=== PATIENT | male | born 1975 | race Caucasian/White ===

== ENCOUNTER 2016-11-09 18:13 | Emergency (ER) | payer OTHER ==
[2016-11-09 18:19] VITALS: BP 128/68
--- NOTE | 2016-11-09 18:42 | ED PSYCHIATRIC COMPLAINT ---
History of Present Illness General Chief Complaint: Psychiatric Related Complaint Stated Complaint: PSYCH EVAL Source: patient, old records, EMS Exam Limitations: no limitations Vital Signs & Intake/Output Vital Signs & Intake/Output Vital Signs Date Time Temp Pulse Resp B/P Pulse O2 O2 Flow FiO2 Ox Delivery Rate 11/099 98.2 92 18 128/68 97 Room Air Allergies Coded Allergies: lactose (UNKNOWN 11/09/16) sesame oil (UNKNOWN 11/09/16) sesame seed (UNKNOWN 11/09/16) Uncoded Allergies: PESTICIDES (UNKNOWN 04/14/12) Triage Nurses Notes Reviewed? yes Onset: Abrupt Duration: day(s): (1), constant Timing: recent history Severity: mild Severity Numbers: 1 Associated Symptoms: DENIES HPI: 40-year-old male presents to the emergency room brought in by ambulance after a family member called 911 stating that he was acting erratically. On arrival the patient states that he took 1 tramadol today and went to go speak with his uncle. The patient states that he does not know why he was here. The patient has been sober for the past 1 month after being admitted to [place] [facility] for alcohol dependence. The patient takes trazodone and Klonopin daily in addition to his tramadol for chronic knee pain and he denies any alcohol or drug use today. The patient denies suicidal or homicidal ideation and states that he does not want to be here (CARRINGTON DAS) Past History Travel History Traveled to [place] past 21 day No Medical History Any Pertinent Medical History? none Surgical History Surgical History: none Psychosocial History What is your primary language Singaporean ETOH Use: PREVIOUS ALCOHOLIC Family History Hx Contributory? No (CARRINGTON DAS) Review of Systems Review of Systems Constitutional: Reports: see HPI. All Other Systems: Reviewed and Negative Comments Review of systems: See HPI, All other systems negative. Constitutional, no chills no fever, no malaise HEENT: No visual changes no sore throat no congestion, Cardiovascular: No chest pain , no palpitation Skin, no rashes, no change in skin Respiratory: No dyspnea no cough no sputum GI: No nausea no vomiting, no diarrhea, : No dysuria Muscle skeletal: No joint pain, no back pain, no neck pain, Neurologic: No numbness no headache Psych: No stress no anxiety no depression,. Heme/endocrine: No bruising no bleeding Immunology: No lymphadenopathy (CARRINGTON DAS) Physical Exam Physical Exam General Appearance: well developed/nourished, no apparent distress, alert, awake , comfortable Neurological/Psychiatric: no motor/sensory deficits, awake, alert, normal mood/ affect, calm, story analyst II-XII nml as tested Comments: Well-developed well-nourished person in no acute distress HEENT: Normal EENT exam; PERRL, EOMI, no nystagmus. HEAD is atraumatic. moist mucous membranes. Neck: Supple, normal range of motion w Back: Nontender, no CVA tenderness. Full range of motion Cardiovascular: Regular rate and rhythms no murmurs rubs Respiratory:. No respiratory distress. Patient speaking in full complete sentences. Breath sounds clear to auscultation bilaterally: NO W/R/R Abdomen: Soft, nontender nondistended, no appreciable organomegaly. Normal bowel sounds. No rebound/guarding, Extremity: No edema, full range of motion of extremities Neuro: Alert oriented x3, motor sensory normal, cranial nerves II through XII grossly intact. There were no obvious focal neurologic abnormalities. Skin: No appreciable rash on exposed skin, skin is warm and dry. Psych: Mood and affect is normal, memory and judgment is normal. SAD PERSONS Done? patient not suicidal (CARRINGTON DAS) Progress Differential Diagnosis: drug overdose, drug withdrawal, DEPRESSION, ANXIETY, BIPOLAR Plan of Care: Patient is alert and oriented 3, coherent cooperative calm. He does not appear to be a harm to himself. Patient does not arrive on police paper. The patient is declining wishing to speak with crisis. He states that he is unsure why his family called 911 however he went to speak with his uncle today and got agitated. Case was discussed with Dr. JARRETT- as the patient is not on police paper denies SI or HI alert and oriented 3 discussed with him that we cannot keep him against his will. Patient is calm and cooperative at this time he will follow-up tomorrow, he will return anytime sooner if he changes his mind wishes to speak with crisis or has any thoughts of wanting to harm self or others (CARRINGTON DAS) Departure Departure Time of Disposition: 1854 Disposition: HOME OR SELF CARE Condition: Stable Clinical Impression Primary Impression: Normal exam Referrals: ALONDRA CUBA MD (PCP/Family) Additional Instructions: FOLLOW UP WITH YOUR PRIMARY CARE PHYSICIAN ON THURSDAY. Return immediately if you change your mind and wish to speak with someone oriented any other concerns Departure Forms: Customer Survey General Discharge Information (ARCHANA JARAMILLO,CARRINGTON) PA/NONFARM ANIMAL CARETAKER Co-Sign Statement Statement: ED Attending supervision documentation- X I saw and evaluated the patient. I have also reviewed all the pertinent lab results and diagnostic results. I agree with the findings and the plan of care as documented in the PA's/NONFARM ANIMAL CARETAKER's documentation. [] I have reviewed the ED Record and agree with the PA's/NONFARM ANIMAL CARETAKER's documentation. [] Additions or exceptions (if any) to the PAs/NONFARM ANIMAL CARETAKER's note and plan are summarized below: [] (KOLBY SULLIVAN,VENANCIO)
== END 2016-11-09 19:49 ==
LOC: ERH 18:13
DX: Z04.8 Encounter for examination and observation for other specified reasons (principal)

== ENCOUNTER 2016-11-12 16:41 | Inpatient (IN) | payer OTHER ==
[~2016-11-12] VITALS: Ht 177.8 cm; Wt 94.8 kg
--- NOTE | 2016-11-12 16:53 | ED PSYCHIATRIC COMPLAINT ---
See Addendum History of Present Illness General Chief Complaint: ETOH/Drug Related Complaint Stated Complaint: BIBA DRUG ABUSE? Source: patient Exam Limitations: not alert/orientated, clinical condition, poor historian Vital Signs & Intake/Output Vital Signs & Intake/Output Vital Signs Date Time Temp Pulse Resp B/P Pulse O2 O2 Flow FiO2 Ox Delivery Rate 11/12 2101 101 16 117/59 96 Room Air 11/12 1745 142/98 11/12 1743 98.9 100 20 147/101 94 Nasal 2.0L Cannula 11/12 1647 97.6 92 Nasal 2.0L Cannula 11/12 1645 88 Room Air 11/12 1643 115 18 141/96 88 Room Air ED Intake and Output 11/13 0000 11/12 1200 Intake Total Output Total 800 Balance -800 Output, Urine 800 Allergies Coded Allergies: lactose (UNKNOWN 11/09/16) sesame oil (UNKNOWN 11/09/16) sesame seed (UNKNOWN 11/09/16) Uncoded Allergies: PESTICIDES (UNKNOWN 04/14/12) Triage Nurses Notes Reviewed? yes Onset: Abrupt Duration: unknown duration Timing: unknown HPI: 11/12/16 5:36 PM 40-year-old man presents to the emergency department for alcohol intoxication. He denies any complaints. Physical exam, he is awake and alert. He is intoxicated. He does have abrasions to bilateral hands. Physical exam is otherwise unremarkable. According to the patient's ex- Ana María [phone] The patient has been depressed, drinking alcohol on a daily basis, he was recently hospitalized at [facility]. She is concerned that he is a danger to himself. Onset of the symptoms were abrupt, the duration is unknown, the severity is significant as his symptoms required him to come to the emergency department for care. (DENISHA HOLLAND DO) Past History Travel History Traveled to [place] past 21 day No Medical History Any Pertinent Medical History? see below for history Neurological: DENIES EENT: DENIES Cardiovascular: DENIES Respiratory: DENIES Gastrointestinal: DENIES Hepatic: DENIES Renal: DENIES Musculoskeletal: DENIES Psychiatric: DENIES Endocrine: DENIES Blood Disorders: DENIES Cancer(s): DENIES PAN GREASER/Reproductive: DENIES Surgical History Surgical History: none Psychosocial History What is your primary language Maltese Family History Hx Contributory? No (DENISHA HOLLAND DO) Review of Systems Review of Systems Constitutional: Denies: fever. EENTM: Reports: no symptoms. Respiratory: Reports: no symptoms. Cardiovascular: Reports: no symptoms. GI: Reports: no symptoms. Genitourinary: Reports: no symptoms. Musculoskeletal: Reports: no symptoms. Skin: Reports: see HPI. Neurological/Psychological: Reports: no symptoms. Hematologic/Endocrine: Reports: no symptoms. Immunologic/Allergic: Reports: no symptoms. (DENISHA HOLLAND DO) Physical Exam Physical Exam General Appearance: alert, awake, mild distress Head: atraumatic, normal appearance Eyes: Bilateral: normal appearance, PERRL, EOMI. Ears, Nose, Throat: normal pharynx, normal ENT inspection Neck: normal inspection, supple, full range of motion Respiratory: normal breath sounds, chest non-tender, no respiratory distress Cardiovascular: regular rate/rhythm Gastrointestinal: soft, non-tender Extremities: abrsion to the hands, no bony tenderness or swelling Neurological/Psychiatric: awake, alert, anxious Appearance/Memory/Insight: disheveled Behavoir/Eye Contact/Speech: uncooperative Thoughts/Hallucinations: no apparent hallucination Skin: abrasions to the hands SAD PERSONS SAD PERSONS Response Value Male Sex? yes 1 Depression/Hopelessness? yes 2 Previous Attempts/Psych Care yes 1 Excessive Ethanol/Drug Use? yes 1 Social Support? has no support 1 Total 6 SAD PERSONS Done? yes (DENISHA HOLLAND DO) Progress Differential Diagnosis: drug intoxication, drug overdose, drug withdrawal Plan of Care: Orders Procedure Date/time Status Continuous Observation Monitor 11/12 2236 Active ED CRISIS PSYCH CONSULT 11/12 2236 Active Lab Add-on Test 11/12 2232 Active TROPONIN LEVEL 11/12 1747 Complete URINE DRUG SCREEN FOR ER ONLY 11/12 174 Complete Continuous Observation Monitor 11/12 174 Active ACETOMINOPHEN 11/12 174 Complete SALICYLATE 11/12 174 Complete ETHANOL 11/12 174 Complete COMPREHENSIVE METABOLIC PANEL 11/12 174 Complete CBC WITHOUT DIFFERENTIAL 11/12 1744 Complete EKG 11/12 1744 Active Laboratory Tests 11/12/16 1824: Urine Opiates Screen < 100.00, Methadone Screen < 40, Barbiturate Screen < 60, Ur Phencyclidine Scrn < 6.00, Amphetamines Screen < 100, U Benzodiazepines Scrn 374 H, Urine Cocaine Screen < 50, Urine Cannabis Screen < 5.00 11/12/16 1748: Anion Gap 17 H, Estimated GFR > 60, BUN/Creatinine Ratio 8.8, Glucose 118 H, Calcium 8.4, Total Bilirubin 0.6, AST 54, ALT 55, Alkaline Phosphatase 86, Troponin I < 0.01, Total Protein 7.6, Albumin 4.1, Globulin 3.5, Albumin/ Globulin Ratio 1.2, CBC w Diff NO MAN DIFF REQ, RBC 4.82, MCV 93.0, MCH 31.4 H, RDW 14.5, MPV 7.5, Gran % 40.4 L, Lymphocytes % 53.1 H, Monocytes % 4.2, Eosinophils % 1.9, Basophils % 0.4, Absolute Granulocytes 4.2, Absolute Lymphocytes 5.6 H, Absolute Monocytes 0.4, Absolute Eosinophils 0.2, Absolute Basophils 0, PUBS MCHC 33.8, Salicylates < 1.0, Acetaminophen < 10.0 L, Serum Alcohol 460.0 Initial ED EKG: sinus tachycardia, no significant change from old (DENISHA HOLLAND DO) Hand-Off Endorsed To: DENISHA HOLLAND DO Endorsed Time: 0700 Pending: consult (BELLE SULLIVAN,DAVID Asif) Departure Departure Disposition: STILL A PATIENT Condition: Stable Clinical Impression Primary Impression: Alcohol intoxication Referrals: ALONDRA CUBA MD (PCP/Family) Departure Forms: Customer Survey General Discharge Information Comments 11/12/16 Patient was signed out to Dr. Gutierrez at 9 PM. (DENISHA HOLLAND DO) Critical Care Note Critical Care Note Critical Care Time: 30-74 min (DENISHA HOLLAND DO)
--- NOTE | 2016-11-12 16:55 | NUR ---
RADHA FROM FRIENDS HOUSE ON PEER +ETOH AND ?XANAX INGESTION. PER EMS AND POLICE, PT'S STATED TO POLICE THAT PT STOLE HIS MOTHER'S XANAX PILLS. PT WAS AT FRIENDS HOUSE DRINKING BUT FRIEND DID NOT WITNESS ANY PILL INGESTION. UPON ARRIVAL PT DROWSY, ANSWERING ONLY A COUPLE QUESTIONS. SLOW SLURRED SPEECH. FALLS ASLEEP EASILY. 88% ON RA WITH SHALLOW RESPIRATIONS. PLACED ON 2LNC.
--- NOTE | 2016-11-12 17:43 | NUR ---
PT AWAKE BUT NOTED TO HAVE GARBLED SPEECH, REQUESTING TO CALL HIS MOTHER AT THIS TIME, BP 147/101 AUTO, BP MANUAL 142/98. SITTER AT BEDSIDE.
[2016-11-12 18:00] LABS: ABSOLUTE BASOPHIL COUNT 0 /CUMM (0.0-0.2); ABSOLUTE EOSINOPHIL COUNT 0.2 /CUMM (0.0-0.7); ABSOLUTE GRANULOCYTE CT 4.2 /CUMM (1.4-6.5); ABSOLUTE LYMPH COUNT 5.6 /CUMM (1.2-3.4); ABSOLUTE MONOCYTE COUNT 0.4 /CUMM (0.10-0.60); BASOPHIL % 0.4 % (0.0-2.0); EOSINOPHIL % 1.9 % (0-5); GRANULOCYTE % 40.4 % (42.2-75.2); HEMATOCRIT 44.8 % (42-52); MEAN CORPUSCULAR HGB 31.4 PG (27.0-31.0); MEAN CORPUSCULAR HGB CONC 33.8 G/DL (33.0-37.0); MEAN PLATELET VOLUME 7.5 FL (7.4-10.4); PLATELET COUNT 282 /CUMM (130-400); RBC DISTRIBUTION WIDTH 14.5 % (11.5-14.5); RED BLOOD CELL CT 4.82 /CUMM (4.70-6.10); WHITE BLOOD CELL COUNT 10.5 /CUMM (4.8-10.8)
--- NOTE | 2016-11-12 18:11 | NUR ---
PT INTERMITTENTLY SPEAKING OUT BUT TO NO SPECIFIC PERSON. SITTER AT DOORWAY FOR CONTINUOUS MONITORING
--- NOTE | 2016-11-12 18:26 | NUR ---
URINE OBTAINED AND SENT TO LAB. PT ABLE TO STAND WITH ASSIST X2 BUT VERY UNSTEADY AT THIS TIME
--- NOTE | 2016-11-12 21:01 | NUR ---
PT SLEEPING. 02 96%. VSS
--- NOTE | 2016-11-12 23:41 | NUR ---
ASSUMED CARE OF PT PER VITALIY WILSON. PT SLEEPING IN RM WITH RR, CHEST RISE AND FALL NOTED. SITTER IN PLACE IN , PT MOVED TO RM 13.
--- NOTE | 2016-11-13 02:03 | NUR ---
PT SLEEPING WITH RR, CHEST FALL AND RISE NOTED. SITTER IN BH
--- NOTE | 2016-11-13 03:35 | NUR ---
PT AWOKE ASKING TO BE SEEN BY A DOCTOR SINCE HE STATED " I WAS NEVER SEEN TONIGHT", THIS RN INFORMED PT THAT HE WOULD BE SEEN BY CRISIS IN THE MORNING.
--- NOTE | 2016-11-13 04:24 | NUR ---
PT SLEEPING WITH RR, SITTER IN PLACE. PT ASKED THIS RN FOR A CUP OF WATER. WILL CONTINUE TO MONITOR
--- NOTE | 2016-11-13 05:27 | NUR ---
PT SLEEPING WITH RR, SITTER IN PLACE, WILL CONTINUE TO MONITOR
--- NOTE | 2016-11-13 06:30 | NUR ---
PTS CALLED (HARLEEN [phone]) PTS STATES " I DONT WANT MY KNOWING I CALLED, I WOULD LIKE THE CRISIS TEAM TO CALL ME AND LET ME KNOW THE PLAN ONCE THEY ARE ALL SET, BECAUSE IF HE GETS D/C'D HOME ITS GOING TO BE BAD"
--- NOTE | 2016-11-13 07:23 | NUR ---
ASSUMED CARE OF PT WHO IS AWAKE, ALERT. PT REQUESTING HIS WEDDING BAND, GLASSES AND PHONE. ONLY WEDDING BAND IN VALUABLES SAFE. INFORMED PT THAT HE WAS VERY INTOXICATED WHEN HE ARRIVED YESTERDAY AND THAT HE DIDN'T ARRIVE WITH PHONE OR GLASSES. WEDDING BAND RETURNED TO PT AND PT SIGNED FOR IT. PT INFORMED THAT HE WILL GET HIS CLOTHES BACK WHEN HE IS DISCHARGED. WAITING FOR CRISIS EVALUATION. PT ATE ALL OF HIS BREAKFAST TRAY. SITTER REMAINS AT DOORWAY. WILL CTM
--- NOTE | 2016-11-13 11:04 | NUR ---
PT BAL =.003 ADVISED HIM CRISIS WILL MEET WITH HIM SOON
--- NOTE | 2016-11-13 11:19 | ED PSY CRISIS COLLATERAL NOTE ---
See Addendum Collateral Note Collateral Note Family/Inform/Adam Contacts: portable trackman spoke with Pt's Ana María Bennett and Pt's Mother Mariana Solorio . They expresses great concern about pt and would like him to be admitted for inpt psych tx. They report that they have been for over 15 years and he is not the person she . "He is out of touch with reality." They explain that he thinks he is a transit police officer and will dress up as one. He got in trouble the other day by a real transit police officer for impersonating a transit police officer. Pt also tells people he is a Hells Arvind and dresses in Hells angels clothes. He tells others that he has multiple Motor Cycles at home. states that he has never been on a motor cycle in his life and does not own any. Pt was committed to [facility] inpt this past August 2016 for 2 weeks. thinks he was diagnosed with either Bipolar or Schizophrenia. 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 Following his inpt psych tx at [facility], he went directly into a 28 day rehab and got out Oct 24 2016. He claims that he has maintained his sobriety, but he has been drinking again. explains that she started filing for divorce and pt has been staying with his mother, however given his relapse and psychotic behavior, Mom could not longer have him in her home either and pt is now homeless. Mom explains that she is very afraid of him as he has severe mood swings and he becomes very entitled and grandiose as well as irrational and illogical. He showed up at his 's place yesterday and was intoxicated and agitated and talking to people who were not there, so she called the police and they brought him to the ED on a PEER. They report that pt does not know reality and 95 percent of what he says is not real. They report that pt is also very manipulative. Pt will be very sweet and then instantly become angry and threatening stating he will get his people after them. reports that he has even threatened to kill her. Both and Mom are afraid of him. 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 says this makes no sense. Pt is currently in tx at [facility] for the past 2 years and has a therapist named Cirilo and sees Dr. Angela for meds. says she does not understand why they prescribe him benzos since pt has been in alcohol treatment. This clinician left a Jenifer a message at [facility] a message for a call back for tx collaboration. Mom and would like to be notified of pt's final dispo.
--- NOTE | 2016-11-13 12:52 | NUR ---
PT HYPERTENSIVE. PRIOR TO BP READING PT STATES HIS BP WILL BE HIGH BECAUSE HE HASN'T TAKEN HIS MEDICATIONS. PT AMBULATORY AROUND AREA. CALM, COOPERATIVE. [id number]
--- NOTE | 2016-11-13 13:35 | NUR ---
1 VALUABLES BAG NOW PLACED IN ED SAFE
--- NOTE | 2016-11-13 13:59 | ED PSYCH CRISIS CONSULTATION ---
See Addendum Crisis Consult Basic Assessment Date of Consult: 11/13/16 Responsible Person/Accompanied By: self Insurance Authorization: Insurance #1: Insurance name: [employer]. Phone number: Policy number: [id number] Group number: [id number] Authorization number: ED Provider: Patient's ED Provider: DENISHA HOLLAND DO Primary Care Physician: Patient's PCP: ALONDRA CUBA MD PCP's Current Psychiatrist: Dr. Angela [facility] Chief Complaint: ETOH/Drug Related Complaint Patient's Quote: "I drank because I felt depressed." Present Illness: Pt is a 40 yo male who was brought to the ED on a PEER that states "Heavily intoxicated by an undetermined substance suspected to be xanax. Alphonso' s and friend both called the [place] police to report he is heavily intoxicated. His friend reported that he is delusional and talking to people who aren't there." Pt's utox is positive for benzos and his BAL 460 at 17:48. clinician oncology spoke with Pt's Ana María Bennett and Pt's Mother Mariana Solorio . They expresses great concern about pt and would like him to be admitted for inpt psych tx. They report that they have been for over 15 years and he is not the person she . "He is out of touch with reality." They explain that he thinks he is a juvenile detention officer and will dress up as one. He got in trouble the other day by a real juvenile detention officer for impersonating a juvenile detention officer. Pt also tells people he is a Hells Arvind and dresses in Hells angels clothes. He tells others that he has multiple Motor Cycles at home. states that he has never been on a motor cycle in his life and does not own any. Pt was committed to [facility] inpt this past August 2016 for 2 weeks. thinks he was diagnosed with either Bipolar or Schizophrenia. 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 Following his inpt psych tx at [facility], he went directly into a 28 day rehab and got out Oct 24 2016. He claims that he has maintained his sobriety, but he has been drinking again. explains that she started filing for divorce and pt has been staying with his mother, however given his relapse and psychotic behavior, Mom could not longer have him in her home either and pt is now homeless. Mom explains that she is very afraid of him as he has severe mood swings and he becomes very entitled and grandiose as well as irrational and illogical. He showed up at his 's place yesterday and was intoxicated and agitated and talking to people who were not there, so she called the police and they brought him to the ED on a PEER. They report that pt does not know reality and 95 percent of what he says is not real. They report that pt is also very manipulative. Pt will be very sweet and then instantly become angry and threatening stating he will get his people after them. reports that he has even threatened to kill her. Both and Mom are afraid of him. 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 says this makes no sense. Pt is currently in tx at [facility] for the past 2 years and has a therapist named Cirilo and sees Dr. Angela for meds. says she does not understand why they prescribe him benzos since pt has been in alcohol treatment. This clinician left clarisa Burgess a message at [facility] a message for a call back for tx collaboration. Mom and would like to be notified of pt's final dispo. Jenifer of [facility] called back and confirmed that pt is actively in tx at [facility] for the past 2 years. He is treated for OCD, General Anxiety and Alcoholism. His meds are Klonopin 2mg 3x daily and trazodone 150mg at bed time prn. He was committed to [facility] September 08 2016 for Psychosis and Alcohol Use and on Sep 22 he transferred to [facility] and then to [facility] for continued alcohol tx. He recently was discharged from [facility] on Oct 24. Upon crisis eval pt stands to shank hands and presents as engaging. As he begins to explain why he is here he becomes tearful. "My friend went to retirement last night and I got depressed and relapsed." Pt is not able to recall how much he drank. He reports that he has been sober since he got out of rehab earlier this month. Until last night when he found out about his friend. Pt expresses feeling disappointed in himself for relapsing. "I have 2 children ages 11 and 16. I need to be sober. I don't want them to go through what I went through with my father. " Pt also identifies that he has been feeling depressed due to his conflicted relationships with his mother and . Pt denies any SI/HI/SH or sx of psychosis. When this clinician identified his previous inpt admit due to delusions, he responded that hey did not know why he was diagnosed with that because he was there for his alcohol use only. Pt also reports that he has never had any SI or HI. Although pt denies most of the concerns that were expressed by his family, he admits that he is very depressed and that he would like inpt psych tx and also need help with his sobriety. Case reviewed with Dr. Arias of Psychiatry and he agrees for plan of inpt psych. There are currently no beds available on [facility] so a bed search will be done. Patient's Address: [address] [place] [address] Other Phone Number: Who Do You Live With? Friend Family/Informants Interviewed: Mother and and out pt provider ([facility]) Allergies - Coded Allergies: lactose (UNKNOWN 11/09/16) sesame oil (UNKNOWN 11/09/16) sesame seed (UNKNOWN 11/09/16) Uncoded Allergies: PESTICIDES (UNKNOWN 04/14/12) Laboratory Results: Laboratory Tests 11/12/16 1824: Urine Opiates Screen < 100.00, Methadone Screen < 40, Barbiturate Screen < 60, Ur Phencyclidine Scrn < 6.00, Amphetamines Screen < 100, U Benzodiazepines Scrn 374 H, Urine Cocaine Screen < 50, Urine Cannabis Screen < 5.00 11/12/16 1748: Anion Gap 17 H, Estimated GFR > 60, BUN/Creatinine Ratio 8.8, Glucose 118 H, Calcium 8.4, Total Bilirubin 0.6, AST 54, ALT 55, Alkaline Phosphatase 86, Troponin I < 0.01, Total Protein 7.6, Albumin 4.1, Globulin 3.5, Albumin/ Globulin Ratio 1.2, CBC w Diff NO MAN DIFF REQ, RBC 4.82, MCV 93.0, MCH 31.4 H, RDW 14.5, MPV 7.5, Gran % 40.4 L, Lymphocytes % 53.1 H, Monocytes % 4.2, Eosinophils % 1.9, Basophils % 0.4, Absolute Granulocytes 4.2, Absolute Lymphocytes 5.6 H, Absolute Monocytes 0.4, Absolute Eosinophils 0.2, Absolute Basophils 0, PUBS MCHC 33.8, Salicylates < 1.0, Acetaminophen < 10.0 L, Serum Alcohol 460.0 Past History Past Medical History Neurological: DENIES EENT: DENIES Cardiovascular: DENIES Respiratory: DENIES Gastrointestinal: DENIES Hepatic: DENIES Renal: DENIES Musculoskeletal: DENIES Psychiatric: DENIES Endocrine: DENIES Blood Disorders: DENIES Cancer(s): DENIES RECEIVER DISPATCHER/Reproductive: DENIES Past Surgical History Surgical History: 1 Psychosocial History Strengths/Capabilities: concerned family, engaged in out pt tx Physical Limitations (Interventions): none reported Psychiatric Treatment History Psych Treatment Psychiatric Treatment Yes Inpatient Treatment Yes Outpatient Treatment Yes Location of Treatment [facility] Reason for Treatment OCD, General Anxiety, Alcohol Use, Depression, and Psychosis Dates of Treatment 2014 to present Response to Treatment variable Diagnosis by History: OCD, General Anxiety, Alcohol Use, Depression, and Psychosis Substance Use/Abuse History Drug Use/Abuse Substances Used/Abused Yes Substance Used/Abused Alcohol First Use relapsed yesterday Last Used yesterday How much used/taken pt does not remember How often relapsed yesterday For how long since yesterday Route of use po Substance Abuse Treatment Substance Abuse Treatment Past Substance Abuse TX Yes Inpatient Treatment Yes Outpatient Treatment Yes Location of Treatment [facility] Reason for Treatment Alcohol use D/O Dates of Treatment August 2016 to Oct 2016 Response to Treatment variable Current Mental Status Mental Status Orientation: Person, Place, Situation Affect: Depressed, Hopeless, Sad Speech: WNL Neuro-vegetative: Anhedonia, Appetite Decreased, Concentration Poor, Helpless, Loss of Interest, Sleep Disturbance Appearance Appearance- Dress/Hygiene: unkempt, tearful Behaviors Thought Process: WNL Thought Content: WNL Memory: Short term memory Insight: Poor SI/HI Risk Assessment Past Suicidal Ideation/Attempts No Current Suicidal Ideation/Att No Past Homicidal Ideation/Att: Yes Current Homicidal Ideation/Attempts No Degree of Intent: None Gravely Disabled: Lack of Insight Risk Factors: high anxiety/distress, SA/MH hospitalized, substance abuse, lives alone, male, limited support Lethality Ratin PTSD Checklist PTSD Done? patient declined (denies trauma hx) ED Management Sitter: Yes Restraints: No DSM5/PS Stressors/Medical Prob Diagnosis' (DSM 5, Stressors, Medical): F33.3 Depression with Psychotic features, F10.20 Alcohol Use D/O severe Current GAF: 25 Departure Disposition Psych Medical Clearance Date: 11/13/16 Medically Cleared at: 1000 Time Started: 1000 Time Ended: 1100 Psychiatrist Consulted: Jaime Arias MD Date Disposition Established: 11/13/16 Time Disposition Established: 1100 Plan for Disposition - Modality: Inpatient Psychiatry Facility: Bed search Rationale for Disposition: safety and stabilization Type of IP Admission: Voluntary Referrals ALONDRA CUBA MD (PCP/Family)
--- NOTE | 2016-11-13 15:27 | NUR ---
PT WATCHING TV IN ROOM, CALM AND COOPERATIVE, VITALS COMPLETED.
--- NOTE | 2016-11-13 16:34 | NUR ---
Bed search being done. Clinical faxed to [facility], [facility] [place], [facility] and [facility]
--- NOTE | 2016-11-13 17:24 | NUR ---
PT'S DROPPED OFF BELONGINGS BAG FOR PT TO TAKE WHEN HOSPITALIZED. SECURITY TO SEARCH/DOCUMENT.
--- NOTE | 2016-11-13 17:36 | NUR ---
PT REFUSED IV, STATED "I HATE NEEDLES" AND "I DON'T NEED ONE. I AM NOT DEHYDRATED."
[2016-11-13 17:47] VITALS: BP 155/101
--- NOTE | 2016-11-13 18:45 | NUR ---
PT CALM AND COOPERATIVE, WATCHING TV. PT SCORING LOW ON CIWA. PT REPORTS HE FEELS WELL.
[2016-11-13 19:50] VITALS: BP 148/80
--- NOTE | 2016-11-13 20:36 | NUR ---
PT IN ROOM 13, CALM AND COOPERATIVE. PT AWAITING DISPO PLANS FROM BED SEARCH.
[2016-11-13 22:25] VITALS: BP 150/90
--- NOTE | 2016-11-13 22:53 | NUR ---
Crisis will continue Pt bedsearch in the morning.
--- NOTE | 2016-11-13 23:24 | NUR ---
PT MEDICATED WITH QHS MEDS - TRAZODONE 350MG AND KLONOPIN 2MG. PT CALM AND COOPERATIVE.
[2016-11-14] VITALS (7 sets, daily range): BP systolic 115–149; BP diastolic 62–98
--- NOTE | 2016-11-14 00:25 | NUR ---
AWAKENED FOR VS. PLEASEANT OFFERS NO COMPLAINTS. NO TREMORS OR AGGITATION PRESENT. SITTER AT DOOR.
--- NOTE | 2016-11-14 06:37 | NUR ---
SST TUBE SENT TO LAB.
--- NOTE | 2016-11-14 06:37 | NUR ---
AWAKENED. PLEASANT. DENIES ANY COMPLAINTS. VS TAKEN. SST DRAWN AND SENT. SITTER AT DOOR.
--- NOTE | 2016-11-14 09:47 | IP CRISIS DIAG ASSESS PSYCH ---
Diagnostic Assessment Basic Assessment Insurance Authorization: Insurance #1: Insurance name: [employer] [place]. Phone number: [phone] Policy number: [id number] Group number: [id number] Authorization number: [id number] Aaron approved 3 nights 11/14-11/16/16 with review on 11/17/16. Review is with Roberto Justino D: [id number] Auth: [id number] Primary Care Physician: Patient's PCP: ALONDRA CUBA MD PCP's Patient's Quote: "I drank because I felt depressed." Present Illness: Pt is a 40 yo male who was brought to the ED on a PEER that states "Heavily intoxicated by an undetermined substance suspected to be xanax. Alphonso' s and friend both called the [place] police to report he is heavily intoxicated. His friend reported that he is delusional and talking to people who aren't there." Pt's utox is positive for benzos and his BAL 460 at 17:48. electorate officer spoke with Pt's Ana María Bennett and Pt's Mother Mariana Solorio . They expresses great concern about pt and would like him to be admitted for inpt psych tx. They report that they have been for over 15 years and he is not the person she . "He is out of touch with reality." They explain that he thinks he is a precinct i police sergeant and will dress up as one. He got in trouble the other day by a real precinct [place] police sergeant for impersonating a prec[place] police sergeant. Pt also tells people he is a Hells Arvind and dresses in Hells angels clothes. He tells others that he has multiple Motor Cycles at home. states that he has never been on a motor cycle in his life and does not own any. Pt was committed to [facility] inpt this past August 2016 for 2 weeks. thinks he was diagnosed with either Bipolar or Schizophrenia. 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 Following his inpt psych tx at [facility], he went directly into a 28 day rehab and got out Oct 24 2016. He claims that he has maintained his sobriety, but he has been drinking again. explains that she started filing for divorce and pt has been staying with his mother, however given his relapse and psychotic behavior, Mom could not longer have him in her home either and pt is now homeless. Mom explains that she is very afraid of him as he has severe mood swings and he becomes very entitled and grandiose as well as irrational and illogical. He showed up at his 's place yesterday and was intoxicated and agitated and talking to people who were not there, so she called the police and they brought him to the ED on a PEER. They report that pt does not know reality and 95 percent of what he says is not real. They report that pt is also very manipulative. Pt will be very sweet and then instantly become angry and threatening stating he will get his people after them. reports that he has even threatened to kill her. Both and Mom are afraid of him. 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 says this makes no sense. Pt is currently in tx at [facility] for the past 2 years and has a therapist named Cirilo and sees Dr. Angela for meds. says she does not understand why they prescribe him benzos since pt has been in alcohol treatment. This clinician left clarisa Burgess a message at [facility] a message for a call back for tx collaboration. Mom and would like to be notified of pt's final dispo. Jenifer of [facility] called back and confirmed that pt is actively in tx at [facility] for the past 2 years. He is treated for OCD, General Anxiety and Alcoholism. His meds are Klonopin 2mg 3x daily and trazodone 150mg at bed time prn. He was committed to [facility] September 08 2016 for Psychosis and Alcohol Use and on Sep 22 he transferred to [facility] and then to [facility] for continued alcohol tx. He recently was discharged from [facility] on Oct 24. Upon crisis eval pt stands to shank hands and presents as engaging. As he begins to explain why he is here he becomes tearful. "My friend went to group home last night and I got depressed and relapsed." Pt is not able to recall how much he drank. He reports that he has been sober since he got out of rehab earlier this month. Until last night when he found out about his friend. Pt expresses feeling disappointed in himself for relapsing. "I have 2 children ages 11 and 16. I need to be sober. I don't want them to go through what I went through with my father. " Pt also identifies that he has been feeling depressed due to his conflicted relationships with his mother and . Pt denies any SI/HI/SH or sx of psychosis. When this clinician identified his previous inpt admit due to delusions, he responded that hey did not know why he was diagnosed with that because he was there for his alcohol use only. Pt also reports that he has never had any SI or HI. Although pt denies most of the concerns that were expressed by his family, he admits that he is very depressed and that he would like inpt psych tx and also need help with his sobriety. Case reviewed with Dr. Arias of Psychiatry and he agrees for plan of inpt psych. There are currently no beds available on [facility] so a bed search will be done. Patient's Address: [address] [place] [address] Other Phone Number: Who Do You Live With? Friend Feel Safe Where You Live? Yes Feel Safe in Your Relationship Yes Marital Status: Do You Have Children? Yes Ages? 11 and 16 Primary Language? Korean Language(s) Spoken At Home: Korean Family/Informants Interviewed: Mother and and out pt provider ([facility]) Allergies - Coded Allergies: lactose (UNKNOWN 11/09/16) sesame oil (UNKNOWN 11/09/16) sesame seed (UNKNOWN 11/09/16) Uncoded Allergies: PESTICIDES (UNKNOWN 04/14/12) Lab Results: Laboratory Tests 11/14/16 0637: Serum Alcohol Cancelled 11/14/16 0630: Anion Gap 11, Estimated GFR > 60, BUN/Creatinine Ratio 16.3, Glucose 102 H, Calcium 8.8, Total Bilirubin 2.1 H, AST 30, ALT 44, Alkaline Phosphatase 71, Total Protein 7.0, Albumin 3.8, Globulin 3.2, Albumin/Globulin Ratio 1.2, Serum Alcohol < 10.0 Toxicology Screen Completed? Yes Results: positive Symptoms of Use: positive for benzos Past History Past Surgical History Surgical History DENIES Abuse/Trauma History Trauma History/Current Trauma: Denies Legal History Current Legal Status: none Have you ever been arrested? No Number of Arrests: [address] Dates: denies Associate Professor Of Pathology denies Psychosocial History Strengths/Capabilities: concerned family, engaged in out pt tx Physical Limitations (Interventions): none reported Psychiatric Treatment History Psych Treatment Psychiatric Treatment Yes Inpatient Treatment Yes Outpatient Treatment Yes Location of Treatment [facility] Reason for Treatment OCD, General Anxiety, Alcohol Use, Depression, and Psychosis Dates of Treatment 2014 to present Response to Treatment variable Diagnosis by History: OCD, General Anxiety, Alcohol Use, Depression, and Psychosis Risk Factors: high anxiety/distress, SA/MH hospitalized, substance abuse, lives alone, male, limited support Substance Use/Abuse History Drug Use/Abuse minimum 12mo Hx Substances Used/Abused Yes Substance Used/Abused Alcohol First Use relapsed yesterday Last Used yesterday How much used/taken pt does not remember How often relapsed yesterday For how long since yesterday Route of use po Substance Abuse Treatment Substance Abuse Treatment Past Substance Abuse TX Yes Inpatient Treatment Yes Outpatient Treatment Yes Location of Treatment [facility] Reason for Treatment Alcohol use D/O Dates of Treatment August 2016 to Oct 2016 Response to Treatment variable Sexual History Sexually Active No # of partners 0 Sexual Orientation Heterosexual Sexual Concerns: he and are currently Education History Highest Level of Education: Associates in Culinary and business Preferred Learning Style: visual, auditory, experiential Current Mental Status Mental Status Orientation: Person, Place, Situation Affect: Depressed, Hopeless, Sad Speech: WNL Neuro-vegetative: Anhedonia, Appetite Decreased, Concentration Poor, Helpless, Loss of Interest, Sleep Disturbance Appearance Appearance- Dress/Hygiene: unkempt, tearful Behaviors Thought Process: WNL Thought Content: WNL Memory: Short term memory Insight: Poor SI/HI Risk Assessment - Minimum 6mo History- Past Suicidal Ideation/Attempts No Current Suicidal Ideation/Att No Past Homicidal Ideation/Att: Yes Current Homicidal Ideation/Attempts No Degree of Intent: None Gravely Disabled: Lack of Insight Risk Factors: high anxiety/distress, SA/MH hospitalized, substance abuse, lives alone, male, limited support Lethality Ratin Needs/Init TX Plan/Goals: safety and stabilization of sx, individual group anf family therapy, med eval AUDIT-C Questionnaire: AUDIT-C Questionnaire: Response Value ETOH use in the past year Monthly or less 1 # drinks typical/day 10 or more 4 6 or > drinks per occasion Less than monthly 1 Total 6 DSM5/PS Stressors/Medical Prob Diagnosis' (DSM 5, Stressors, Medical): F33.3 Depression with Psychotic features, F10.20 Alcohol Use D/O severe Current GAF: 25 Comments: Knee injury that requires surgery
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
--- NOTE | 2016-11-14 13:21 | NUR ---
REPORT CALLED TO [facility] NURSE ED, DISTRIBUTION CALLED FOR TRANSFER TO [facility]. WILL CALL SECURITY UPON DISTRIBUTIONS ARRIVAL.
--- NOTE | 2016-11-14 13:42 | NUR ---
CLOTHING BAG AND 1 VALUABLE BAG GIVEN TO SECURITY, PT TO [facility] WITH SECURITY AND DISTRIBUTION.
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
--- NOTE | 2016-11-14 15:37 | History & Physical ---
General Information and HPI MD Statement: I have seen and personally examined PING PARADA and documented this H&P. The patient is a 40 year old M who presented with a patient stated chief complaint of feeling depressed and drinking alcohol. Source of Information: patient Exam Limitations: no limitations History of Present Illness: 40-year-old male with past medical history significant for alcohol use, depression, diverticulosis with episodes of diverticulitis as well as right knee arthritis scheduled for surgery who was admitted to Inpatient Psychiatry after intoxication with either alcohol on an undetermined substance as well as feeling depressed. Currently patient has been complaining of left lower quadrant pain. He claims that he gets a fair of diverticulitis often. Last night he 8 February dose as well as cheese which had lactulose. He is lactose intolerance that's why he' s thinking that probably he's going to develop flareup office diverticulitis. His labs from 2 days ago showed that he had no leukocytosis and he's afebrile. He came that he has been going through separation with his therefore this has been a very stressful time for him. According to psych note from downstairs , patient had some delusions as well Allergies/Medications Allergies: Coded Allergies: lactose (UNKNOWN 11/09/16) sesame oil (UNKNOWN 11/09/16) sesame seed (UNKNOWN 11/09/16) Uncoded Allergies: PESTICIDES (UNKNOWN 04/14/12) Past History Travel History Traveled to [place] past 21 day No Medical History Neurological: DENIES EENT: DENIES Cardiovascular: DENIES Respiratory: DENIES Gastrointestinal: diverticulitis Hepatic: DENIES Renal: DENIES Musculoskeletal: DENIES Psychiatric: DENIES Endocrine: DENIES Blood Disorders: DENIES Cancer(s): DENIES MODEL BUILDER DISPLAY/Reproductive: DENIES History of MRSA: No History of VRE: No History of CDIFF: No Isolation History: Standard Surgical History Surgical History: none Past Family/Social History Psychosocial History Where do you live? 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 EENTM: Reports: see HPI. Cardiovascular: Reports: see HPI. Respiratory: Reports: see HPI. GI: Reports: see HPI. Musculoskeletal: Reports: see HPI. Skin: Reports: see HPI. Neurological/Psychological: Reports: see HPI. Exam & Diagnostic Data Last 24 Hrs of Vital Signs/I&O Vital Signs Date Time Temp Pulse Resp B/P Pulse O2 O2 Flow FiO2 Ox Delivery Rate 11/14 1412 97.4 75 142/98 11/14 1230 98.0 78 20 136/78 98 Room Air Room Air 11/14 0636 97.3 68 16 149/93 98 Room Air 11/14 0635 97.3 68 16 149/93 11/14 0025 97.5 60 16 115/62 11/14 0025 97.6 60 16 115/62 97 Room Air 11/13 2225 98.0 85 16 150/90 11/13 2225 98.0 85 16 150/90 98 Room Air 11/13 1950 98.2 92 16 148/80 11/13 1950 98.2 92 16 148/80 96 Room Air 11/13 1747 98.3 86 16 155/101 11/13 1747 98.3 86 16 155/101 93 Room Air Intake & Output 11/14 1600 11/14 0800 11/14 0000 Intake Total Output Total Balance Patient 209 lb Weight Physical Exam General Appearance Alert, Oriented X3, Cooperative Skin No Rashes HEENT PERRLA Neck Supple Cardiovascular Regular Rate, Normal S1, Normal S2 Lungs Clear to Auscultation Abdomen Normal Bowel Sounds, Soft, Tenderness in LLQ. Neurological Cranial Nerves II through XII: Intact Extremities No Edema Last 24 Hrs of Labs/Bakari: Laboratory Tests 11/14/16 0637: Serum Alcohol Cancelled 11/14/16 0630: Anion Gap 11, Estimated GFR > 60, BUN/Creatinine Ratio 16.3, Glucose 102 H, Calcium 8.8, Total Bilirubin 2.1 H, AST 30, ALT 44, Alkaline Phosphatase 71, Total Protein 7.0, Albumin 3.8, Globulin 3.2, Albumin/Globulin Ratio 1.2, Serum Alcohol < 10.0 Assessment/Plan Assessment: 40-year-old male who is admitted with substance intoxication as well as now likely has a mild flareup off acute diverticulitis. Patient was very tender in the left lower quadrant. Although he is afebrile. I do not have fresh CBC available. Patient is also hypokalemic. I will order some potassium for him. I will check a CBC. I will also put him on Augmentin. I would also put him on clear liquid diet. His diet can be advanced if he tolerates. I will leave the psych management up a psychiatrist. As Ranked By This Provider Problem List: 1. Alcohol intoxication 2. Acute diverticulitis Miscellaneous Miscellaneous Documentation Attending Case Discussed With: Miladis Modi MD Primary Care Physician: ALONDRA CUBA MD Patient sees these Specialists Dr. Yeung. Level of Patient Care: [facility]
--- NOTE | 2016-11-14 16:40 | ED PSY CRISIS COLLATERAL NOTE ---
Collateral Note Collateral Note Family/Inform/Adam Contacts: Reviewed ED/Crisis notes
--- NOTE | 2016-11-14 17:05 | CPS MD/APRN INITIAL ASSE PSYCH ---
See Addendum Psychiatric Admission Sack Cleaning Hand's Note Reviewed: Yes Patient Seen and Examined: Yes Identifying Information: 40-year-old Chief Complaint: Alphonso was brought in to ED on a Police Emergency Exam Request after and friend called [employer] because Pt was "inoxicated, delusional, and talking to people who were not there." Reaction to Hospitalization: Calm and agreeable History of Present Illness Onset of Illness: The crisis record indicated that Alphonso was admitted in August 2016 to an inpatient psychiatric unit at [facility]. 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 and denied that he thought he was a police magistrate, he acknowledged that he 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." When asked if he was diagnosed with Bipolar or Scizophrenia, he said "I don't know where my got that information from, I am not Bipolar." Past Psychiatric History Past Diagnosis(es)- if any: According to Loreto Dennis [facility]'s note [facility] told her that Alphonso was treated for the past 2 years for OCD, Generlaized Anxiety, and Alcoholism Past Precipitating Factors- if any: Drinking, Possible Mis-use of Xanax and may be Klonopin, and refusing to take a mood stabilizer - Include inpatient and outpatient treatment Treatment History: He was at [facility] inpatient psychiatric unit in August 2016, He said he followed with [facility] after that He was received treatment with [facility] x 2 years History of Suicide Attempts or Gestures Alphonso denied ever attempting suicide Substance Abuse History: Alphonso has history of alcohol use disorder Alphonso denied abusing prescribed Klonopin or Xanax, he said he was not taking Klonopin three time daily (may twice daily of the 2 mg strength), it seems that before [facility] he was getting Xanax 2 mg TID for a while from a doctor in [place] Allergies: Coded Allergies: lactose (UNKNOWN 11/09/16) sesame oil (UNKNOWN 11/09/16) sesame seed (UNKNOWN 11/09/16) Uncoded Allergies: PESTICIDES (UNKNOWN 04/14/12) Home Med List: Klonopin 2mg TID Trazodone 350 mg at bedtime - Include any medical condition(s) that may - impact the patient's recovery/remission Past Medical History: Diverticulitis Past History Medical History Blood Transfusion Hx: No Neurological: NONE, DENIES EENT: DENIES Cardiovascular: NONE, DENIES Respiratory: NONE Gastrointestinal: diverticulitis Hepatic: Alcohol Renal: NONE Musculoskeletal: DENIES Psychiatric: alcohol dependence, anxiety, bipolar disease, depression, insomnia Endocrine: obesity Blood Disorders: DENIES Cancer(s): DENIES ORACLE SPECIALIST/Reproductive: DENIES Other Medical Hx: Denied seizures History of MRSA: No History of VRE: No History of CDIFF: No Isolation History: Standard Influenza Vaccine Status Unknown if ever received Surgical History Surgical History: DENIES Psychiatric Family/Social Hx Family History Psychiatric Illness: No known family psychiatric history Substance Use: Alphonso denied family history of substance abuse Suicides: Juany denied any family history of suicdes Social History Living Situation: Recently living with a friend Significant Relationships (family/friends): is filing for divorce but she is supportive of patient 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 - #1 Recognizing dangerous situations. - #2 Coping Skills. - #3 Basic information about quitting. Status of Tobacco Cessation Counseling: N/A B/C NO TOB USE Cessation Med Status: No Tobacco Use last 30d Alcohol Screening - ETOH screen POS if BAL >=80 or Audit-C>= M4/F3 Audit-C Score from Diag Assess: 6 Blood Alcohol Level: Laboratory Tests 11/12 11/14 11/14 1468 0630 0637 Toxicology Serum Alcohol (<10 MG/DL) 460.0 < 10.0 Cancelled Alcohol Use Screening Results: Neg per Audit C &/or BAL - If ETOH counseling indicated - the following topics are required. - #1 Express concern about the patient's - drinking at unhealthy levels, include informing - of national norms for moderate drinking: - men <= 14 drinks/week, max 4 drinks/occasion - women <= 7 drinks/week, max 3 drinks/occasion - #2 Providing feedback, including linking alcohol to - negative physical effects (liver injury, hypertension) - negative emotional effects (relationship problems and - depression) - negative occupational consequences (reduced work - performance) - #3 Advising the patient to abstain from alcohol or - to drink below national norms for moderate drinking - (as listed above). Status of ETOH Use Counseling: #1, #2 AND #3 Completed. Metabolic Screening - Screen if on a Neuroleptic Medication - Metabolic screening should include: - Blood Pressure, BMI, Glucose or Hgb A1c, & a - Lipid profile from within the past 365 days. Metabolic Screening ([X]) Not Applicable, patient not on a neuroleptic. OR () Patient on a neuroleptic(s) . Enter below results for Glucose or Hemoglobin A1C, and lipid panel if obtained during the last 365 days. BMI: 29.900 Blood Pressure: 141/97 Laboratory Results (If applicable): Exam and Plan Mental Status Examination Ambulation Status: Fully independent Appearance: Sports a lindsay, reasonable hygiene Attitude towards examiner: Friendly, polite Psychomotor activity: Slightly increased Behavior: Withing socially appropriate norms Quality of speech: Talktive but not pressured Affect: Full range, euthymic Mood: "Okay" Suicidal Ideation: Denied Homicidal Ideation: Denied Hallucinations: Denied. According to infor from he may have had hallucinations prior to arrival at the ED Paranoid/Delusional Material: told Loreto that patient had delusions of being a helicopter officer, a [employer] member, undercover narcotics office (he denied all that today) Difficulties with thought organization: None during my interview (3:05-3:30 PM on 11/04/2016) Insight: Poor Judgment: Poor according to the recent real-life events Orientation: Oriented x3 Cognition: No impairements noted during my interview Memory Function: Within normal Estimate of intellectual functioning: Average Assets/Strengths Patient Identified Assets/Strengths: Friendly, honest Impression/Plan Impression and Plan: 40-year-old // may be heading for divoce with recent bizarre behaviors and Alcohol Use Disorder Sedative Hypnotic Use Disorder Rule out substance induced psychosis with onset during withdrawal (Benzos) Rule out Bipolar I Rule Schizo Bipolar - Include all active medical diagnosis that require tx DSM 5 Diagnosis(es): Alcohol Use Disorder Sedative Hypnotic Use Disorder Rule out substance induced psychosis with onset during withdrawal (Benzos) Rule out Bipolar I Rule Schizo Bipolar - Initial Tx Plan for Active Psych & Medical Conditions Treatment Plan: 1) Inpatient level of care is appropriate 2) 15 minute checks 3) Daily Evaluation by Psychiatrist 4) Evaluation by RN once a shift 5) Group Therapy 6) [facility] Therapy 7) Patient refuses to take any psychiatric medications except Klonopin and Trazodone - Factors that would help patient function - in a less restrictive setting. Factors: See above
[2016-11-14 17:39] LABS: ABSOLUTE BASOPHIL COUNT 0 /CUMM (0.0-0.2); ABSOLUTE EOSINOPHIL COUNT 0.1 /CUMM (0.0-0.7); ABSOLUTE GRANULOCYTE CT 6.7 /CUMM (1.4-6.5); ABSOLUTE LYMPH COUNT 1.9 /CUMM (1.2-3.4); ABSOLUTE MONOCYTE COUNT 0.3 /CUMM (0.10-0.60); BASOPHIL % 0.3 % (0.0-2.0); EOSINOPHIL % 0.6 % (0-5); HEMATOCRIT 44.7 % (42-52); MEAN CORPUSCULAR HGB 31.1 PG (27.0-31.0); MEAN CORPUSCULAR HGB CONC 33.6 G/DL (33.0-37.0); MEAN CORPUSCULAR VOLUME 92.7 FL (80.0-94.0); MEAN PLATELET VOLUME 7.8 FL (7.4-10.4); PLATELET COUNT 216 /CUMM (130-400); RBC DISTRIBUTION WIDTH 14.4 % (11.5-14.5); RED BLOOD CELL CT 4.83 /CUMM (4.70-6.10)
[2016-11-14 17:41] LABS: GRANULOCYTE % 74.3 % (42.2-75.2)
[2016-11-14] MEDS ORDERED: TRAZODONE HCL150 M1 PO (17:51)
[2016-11-14] MEDS ORDERED: TRAZODONE HCL50 M1 PO (17:53)
[2016-11-14] MEDS ORDERED: CLONAZEPAM2 M2 PO (17:54)
--- NOTE | 2016-11-14 22:02 | NUR ---
Pt is out in the community mood is stable affect is in full range. Compliant and cooperative with the staff. Vital signs are stable c/o no pain. Pt appetite is good. Will continue to monitor the pt over night.
[2016-11-15] VITALS (8 sets, daily range): BP systolic 135–143; BP diastolic 78–97
--- NOTE | 2016-11-15 11:23 | CP SOUTH PROGRESS NOTE PSYCH ---
Psych (Inpt) Progress Note Progress Note Include the following elements, when applicable: Involvement in the active treatment of the patient with behavioral observations of the patient and the patient's response to the treatment. Review of the ongoing treatment process in the context of the treatment plan. Indication of how multi-disciplinary staff members are carrying out the treatment plan. Plans for future interventions and recommendations for revision of the treatment plan. Liaison with other physicians/providers. Progress Note: Stated that he was sober since September 08, that he was depressed and anxious and had a relapse. Stated that he wants to focus on himself and to relax and get better over the next few days. Was drinking just Thursday, no hx of withdrawal sx per him. Otherwise doing well; wants to leave early in the week. Stated that he doesnt need any other meds and he took himself off of seroquel and other meds b/c too sedating, that he has no other mental health needs. MSE: young man, adequate grooming. Calm and well related. No psychomotor slowing /activation present. No other movement d/o. Makes good eye contact. Speech normal. Mood neutral, affect constricted. Thought process linear. No noted thought content abnormalities noted. Denies SI/HI. Not internally preoccupied and no evidence hallucinations. Insight fair, judgment adequate. A: 40 y/o man w/ hx alcohol use d/o, depressive sx, admited after he was intoxicated, disorganized. Per family collateral in the note he has a hx of manipulative behavior, intoxication, and psychotic sx however patient denies any of this; minimizing alcohol use. Risk associated primarily w/ lack of insight/hx of psychotic sx per family, hx aggression and most recently alcohol intoxication. Manage risk w/ education, engagement, monitoring for development of any acute psychotic sx. Plan: Continue current plan of care. Discussed CIWA to be changed to ativan instead of clonazepam but he declined.
--- NOTE | 2016-11-15 12:26 | NUR ---
PT REPORTS HIS SLLEP WAS ONLY FAIR. HE IDENTIFIED HIS GOAL WAS TO STAY SOBER. HE HAS BEEN CALM AND COOPERATIVE AND HIS INTERACTIONS WITH STADFF AND PEERS HAS BEEN APPROPRIATE. HE DENIES ANY SUICIDAL THOUGHTS AT THIS TIME
--- NOTE | 2016-11-15 22:51 | NUR ---
Patient alert and oriented, speecjh clear and coherent. No apparent signs of AH/VH or deluisons. Patient is present in the milieu, out in the community. Medication complaint with behavior issues. Patient conversation are supeficial but present nonetheless.
--- NOTE | 2016-11-16 05:36 | NUR ---
PATIENT AT IN [facility] UNTIL 314, CITING INABILITY TO SLEEP IN ROOM WITH LIGHT; HE APPEARED TO SLEEP THE REST OF THE SHIFT.
--- NOTE | 2016-11-16 11:40 | CP SOUTH PROGRESS NOTE PSYCH ---
Psych (Inpt) Progress Note Progress Note Include the following elements, when applicable: Involvement in the active treatment of the patient with behavioral observations of the patient and the patient's response to the treatment. Review of the ongoing treatment process in the context of the treatment plan. Indication of how multi-disciplinary staff members are carrying out the treatment plan. Plans for future interventions and recommendations for revision of the treatment plan. Liaison with other physicians/providers. Progress Note: Wants copy of his bill of rights and his legal status; no other major complaints apart from some poor sleep b/c loud roommate/door open by roommate. Stated that he is not having any withdrawal sx, no dizziness or shakiness. When confronted about some of the content leading up to his admission, denied any recent threats , any past violence stated that his ex was making things up. Some oddness (mild) at times, but no gross disorganization of thinking or speech noted. MSE: young man, adequate grooming. Calm, cooperative. No psychomotor changes. No tics/tremors/ movement d/o. Makes good eye contact. Speech normal. Mood neutral, affect constricted. Thought process linear overall maybe paranoia vs normal about wanting to see his medical record? No noted thought content abnormalities noted. Denies SI/HI. Not internally preoccupied and no evidence hallucinations. Insight fair, judgment adequate. A: 40 y/o man w/ hx alcohol use d/o, depressive sx, admited after he was intoxicated, disorganized. Per family collateral in the note he has a hx of manipulative behavior, intoxication, and psychotic sx patient continues to deny any psychiatric hx, declining to sign release of information and states that family is lying about him. Risk associated primarily w/ lack of insight/hx of psychotic sx per family, hx aggression and most recently alcohol intoxication. Manage risk w/ education, engagement, monitoring for development of any acute psychotic sx. Plan: Continue current plan of care. Continue attempting to get record release from previous admission or family. Binding Folder Machine following him re: diverticulitis.
[2016-11-16 12:26] VITALS: BP 147/82
--- NOTE | 2016-11-16 12:59 | NUR ---
Patient is A&O X 3, compliant with medication and group therapies. Patient appears very frustrated earlier in the day over the inability to receive an appropriate meal, c/o of being hungry and verbalizing of checking himself out of the hospital. Mood and affect are stable and appropriate, relates well with staff and very appreciative of the staff effort. Pt has demonstrate lack of delusional and illogical thought, denies any suicidal ideation and thought of harming someone else.
[2016-11-16 13:38] VITALS: BP 147/82
[2016-11-16 16:22] VITALS: BP 144/89
[2016-11-16 16:41] VITALS: BP 144/89
[2016-11-16 20:12] VITALS: BP 140/86
[2016-11-16 20:16] VITALS: BP 140/86
--- NOTE | 2016-11-16 21:26 | NUR ---
PT IS VISIBLE ON UNIT, SOCIAL WITH PEERS AND STAFF. ATTENDED WRAP UP MEETING AND PARTICIPATED. COOPERATIVE AND COMPLIANT WITH STAFF. NO COMPLAINTS OR SI REPORTED. PT HAS A STABLE MOOD AND FULL RANGE AFFECT.
[2016-11-17] VITALS (9 sets, daily range): BP systolic 136–146; BP diastolic 62–90
--- NOTE | 2016-11-17 04:22 | NUR ---
AWAKE IN [facility]. PEOPLE ON THE UNIT UPSET WITH STAFF DO NOT LIKE THE RULES. BUT TRIED TO BE PLEASNAT WHEN HE COMPLAINS.
--- NOTE | 2016-11-17 11:14 | IP INCIDENTAL NOTE PSYCH ---
Incidental Note Notation: Reviewed chart, EKG, labs, and medication list. 11/12/16 EKG showed QTc of 537. Serum potassium from 11/14/16 = 3.3. Repeat electrolytes and magnesium were ordered for this morning, which patient refused. Education was provided to patient on neccesity for serum labs. Patient refused lab draw, stating he does not want further blood work drawn. Reviewed case with Dr. Arias. Will order cardiology consult and will hold antipsychotic medications for now.
--- NOTE | 2016-11-17 12:39 | CP SOUTH PROGRESS NOTE PSYCH ---
See Addendum Psych (Inpt) Progress Note Progress Note Include the following elements, when applicable: Involvement in the active treatment of the patient with behavioral observations of the patient and the patient's response to the treatment. Review of the ongoing treatment process in the context of the treatment plan. Indication of how multi-disciplinary staff members are carrying out the treatment plan. Plans for future interventions and recommendations for revision of the treatment plan. Liaison with other physicians/providers. Progress Note: [I discussed this patient's progress to date, current mental status, treatment process in the context of the treatment plan, and discharge planning with staff/ team in the daily morning inpatient team meeting. I also met with the patient myself in individual session.] SUBJECTIVE: "I'm doing fine." OBJECTIVE: Current Medications Sig/Willam Start time Last Medication Dose Route Stop Time Status Admin Acetaminophen 650 MG Q4P PRN 11/14 1145 AC 11/15 PO 1450 Al Hydroxide/Mg 30 ML Q6P PRN 11/14 1145 AC Hydroxide PO Amoxicillin/ 875 MG Q12H 11/14 1700 AC 11/17 Clavulanate Potassium PO 0649 Clonazepam 1 MG Q4 HRS NEEDED PRN 11/14 1630 AC PO 11/21 1625 Clonazepam 1 MG 4 TIMES/DAY 11/14 1400 AC 11/17 PO 11/21 1359 1012 Magnesium Hydroxide 30 ML AT BEDTIME NEED.. 11/14 1145 AC PO Quetiapine Fumarate 25 MG Q4 HRS NEEDED PRN 11/14 1645 DC PO Trazodone HCl 350 MG AT BEDTIME 11/14 2200 AC 11/16 PO 2329 Vital Signs Date Time Temp Pulse Resp B/P Pulse O2 O2 Flow FiO2 Ox Delivery Rate 11/17 1209 90 146/62 11/17 0809 96.9 67 140/80 11/17 0801 96.9 67 140/80 11/16 2015 97.4 71 140/86 11/16 2011 97.4 71 140/86 11/16 1641 69 144/89 11/16 1622 69 144/89 11/16 1338 78 147/82 Lab Anion Gap 9 11/17/16 1135 BUN 13 mg/dL 11/17/16 1135 BUN/Creatinine Ratio 16.3 % 11/17/16 1135 Carbon Dioxide 31 mmol/L H 11/17/16 1135 Chloride 102 mmol/L 11/17/16 1135 Creatinine 0.8 mg/dL 11/17/16 1135 Estimated GFR > 60 ml/min 11/17/16 1135 Magnesium 2.0 mg/dL 11/17/16 1135 Potassium 3.9 mmol/L 11/17/16 1135 Sodium 143 mmol/L 11/17/16 1135 ASSESSMENT: Chart, Crisis Eval, CPS admission interview, progress notes, EKG, VS, labs and medication list reviewed. Patient's progress was reviewed with nursing staff and treatment team in morning treatment meeting. CPMRS reviewed: Rxs for Clonazepam 2mg tab #72 and #18 were filled by patient on 10/24/16 (prescribed by Dr. Malcom angela). Patient was admitted on [facility] on 11/14/[address] Romeo, following presentation to ED on [facility] after the patient's and friend called [employer] "inoxicated, delusional, and talking to people who were not there." Per Crisis eval, patient was previously admitted to [facility] in 08/2016 with treatment follow-up at "[facility]." Patient admitted to [facility] for strong suspicion of psychotic and/or manic symptoms. Patient reported relapsing on alcohol on 11/12/16. He could not recall the quantity he consumed. He denied use of illicit substances and tobacco. Utox (+) for BZD and alcohol. He reported his called the police on him due to recent relapse on alcohol. Reported being intoxicated and could not recall the statement he made. He denied recent/past hx of symptoms of PI, connie, delusional thoughts, auditory and visual hallucinations. Denied history of alcohol withdrawal Sz or DTs, denied previous medical hospitalizations due to alcohol withdrawal. Patient not scoring on CIWA. VSS. Today, patient reported a history of outpatient treatment at [facility] in [place] x a "couple of years." Currently, patient is in treatment there with Dr. Angela and clinician Isauro. Patient verified home medications of Trazodone 350mg at for insomnia and depression, and Klonopin 2mg TID for anxiety. Reports this regimen manages his psychiatric symptoms well. Klonopin dose was verified from CPMRS. Patient refused this sports book writer permission to contact [facility] for collateral history; stating "I'm here for help, you don't need their information." Patient reported main stressor which led to his relapse on alcohol was learning that a close friend of his went to care home. He identified this friend as being a primary support. He denied a history of prior suicide attempts. Identified protective factors of "my sons (11y/o and 16y/o)" and "my ." patient describes that he and his are presently trying to reconcile their marriage. He would not elaborate further on this. Today, he denies active and passive suicidal ideation, plans and intent. He denies homicidal ideation. He denies feeling hopeless, helpless, worthless, or guilty. He appears future oriented to find employment and be present for his kids; and resume AA meetings and sobriety. There was no evidence of symptoms of connie/psychosis, paranoia, delusions. Thought process was organized, linear and goal directed. Thought content was appropriate. Cognition was grossly intact. Reported appetite as good , and sleep as fair. Reported receiving Trazodone too early last night. Alcohol use screening counseling was completed with the patient. Reviewed with patient the health risks of combined use of BZD and alcohol, patient verbalized understanding of education. Patient presently refusing psychiatric medications except for Klonopin and Trazodone. Patient is not agreeable to medication changes. However, did request that Trazodone be rescheduled to 11PM. PLAN: 1. Continue current medications. 2. Monitor the patient on unit for safety, mood and ? psychosis. 3. Prn Seroquel held for now. Cardiology consult ordered for QTc = 537. 4. Rescheduled Trazodone 350mg to 11PM for insomnia. 5. Dispo planning per primary team.
--- NOTE | 2016-11-17 14:35 | NUR ---
PT STATED HIS PLAN WAS TO CONTROL HIS ANXIETY TODAY AND WORK ON DISCHARGE. HE DENIED ANY SUICIDAL THOUGHTS AND IS COMPLIANT WITH STAFF AND UNIT ROUTINE. PTS AFFECT IS APPROPRIATE AND HIS BEHAVIOR AND CONVERSATION IS CALM AND COOPERATIVE
--- NOTE | 2016-11-17 17:20 | SOCIAL WORKER PROG NOTE PSYCH ---
Social Work Progress Note Progress Note Alphonso talked about relapsing last week after hearing some bad news about a friend. States he drank alot that day, but had been doing fairly well after leaving rehab from [facility]. Outpatient Care is set up with [facility]. He seems to like seeing Isauro Perez there and Dr. Trejo. Agreed to sign a release. He talked alot about his relationship issues with his Ana María. He feels "condemned" over his behaviors/ relapse, but states she drinks and doesn't see it as a problem. He feels like his whole family is disappointed in him right now. Got tearful in talking about his and how he wants to try and work on their relationship. They are currently seperated, but she had been agreeable to trying marriage counseling. They were supposed to see someone together this week in [place], an [facility]. He didn't present during our discussion with any overt psychotic symptoms and didn't seem overly depressed or suicidal. He said he was having a good day and felt pretty good. He is very concerned about his housing, as he currently has no where to go. We checked some messages on his cell phone. He has a 211 appt. on 11/24 at [facility] for an assessment. He couldn't think of any housing options at this time and didn't like the idea of having to go to an overflow [facility]. Alphonso talked to his Ana María who agreed to come in for a meeting. Meeting was scheduled for 8:30am.
--- NOTE | 2016-11-17 17:22 | SOCIAL WORKER TX PLAN PSYCH ---
Treatment Plan - Please Document: - Evidence that there is ongoing collaboration between - the patient and the interdisciplinary team, - including the patient's active participation and - responsibility for engaging in the treatment regimen, - and that the treatment plan is individualized and - relevant to the patient's conditions. - Treatment plan should reflect documentation indicating - that all active therapeutic efforts are included. Strengths/Capabilities: concerned family, engaged in out pt tx Physical Limitations (Interventions): none reported Patient Identified Trmt Goals: "I need to stay sober" Discharge Plan: [facility] Problem/Goals #1 Problem #1: depression Goal (Short Term): Patient will identify 2 warning signs to decompensation. Goal (Skilled Nursing): Patient will identify 2 coping skills to help his thoughts/ mood Interventions: Patient will be offered medication management with the GEOMORPHOLOGY TEACHER, groups on symptom management, coping skills, relaxation group, accupuncture, goals group. Industrial Machine Operator will help patient identify supports and resources to help him feel better. Assist with aftercare planning. Modalities: group/individual Problem/Goals #2 Problem #2: alcohol dependence/abuse Goal (Short Term): Patient will identify triggers to relapse Goal (Data Processing Manager): Patient will develop a relapse prevention plan Interventions: Patient will be offered AA, groups on relapse prevention, coping skills, spirituality. pole frame construction worker will discuss the pros and cons of drinking and effects on goals. pole frame construction worker will hold family meeting and assist with aftercare planning. 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
--- NOTE | 2016-11-17 23:21 | NUR ---
PT IS CALM, COOPERATIVE WITH STAFF AND PEERS, AND COMPLIANT WITH UNIT RULES. PT IS IN [place], WATCHING TELEVISON, AND INTERACTING WELL WITH OTHERS. PT MOOD IS STABLE, AFFECT APPEARS FULL RANGE, COMMUNCIATION IS NORMAL, AND APPETITE IS NORMAL. PT DENIES SI AT THIS TIME.
--- NOTE | 2016-11-18 07:09 | NUR ---
PATIENT SLEPT ALL NIGHT.
[2016-11-18 07:53] VITALS: BP 152/88
[2016-11-18 08:13] VITALS: BP 152/88
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
--- NOTE | 2016-11-18 11:29 | SOCIAL WORKER PROG NOTE PSYCH ---
Social Work Progress Note Progress Note Alphonso's Ana María came for a family meeting this morning. She was expressed her concerns about his drinking behavior. She stated that he was probably out of rehab for 3 days and relapsed. She feels that he is in denial about his drinking. She expressed concerns for her safety and her son's. She does not want him home. He hasn't lived with her since May. I asked if he had threatened her? What makes her fear him? There was no specific threat made, but she interpreted a vague comment as threatening. She has filed a restraining order in the past and has been considering it again. There was alot of discord between the two at the meeting. He appears to be in denial of where things have been headed with their relationship. He was thinking they are working on their marriage and he was feeling hopeful. She adamently stated that it is over and that's it. He got upset and stated then fine that's it the meeting is over. Talked with Alphonso after about how he needs to focus on himself and that his has set a clear boundary right now. He was upset initially, but calmed down. He stated he wanted to call his Mom and talk with her to see if it was a possibility for him to live with her. We called his Mom together. She talked at length about how she has lost trust in her son, due to his drinking. She is clearly upset by his behaviors and was very resistant about taking him in. She clearly didn't want to see him out on the street, so she agreed for him to return. Informed her of his follow up treatment with [facility] and stated he should be going to AA everyday as well. Alphonso will be getting a cab to his house to picker/puller his car and then head to his Mom's in [place]. Encouraged him to get to AA meetings daily. He said he planned to.
[2016-11-18 12:31] VITALS: BP 152/90
[2016-11-18 12:33] VITALS: BP 152/90
[2016-11-18] MEDS ORDERED: TRAZODONE HCL100 M1 PO (13:00)
[2016-11-18] MEDS ORDERED: VITAMIN B-1100 MG PO (13:00)
[2016-11-18] MEDS ORDERED: ONE DAILY MULT1 EAC2 PO (13:00)
[2016-11-18] MEDS ORDERED: FOLIC ACID1 M1 PO (13:00)
[2016-11-18] MEDS ORDERED: AMOX-CLAV 875-1 EACH PO (13:00)
[2016-11-18] MEDS ORDERED: KLONOPIN1 M1 PO (13:00)
--- NOTE | 2016-11-18 14:00 | DISCHARGE SUMMARY REPORT-PSYCH ---
Visit Information Visit Dates/Diagnosis' Admission Date: 11/14/16 Discharge Date: 11/18/16 Reason for Admission: ? Psychosis/Alcohol intoxication Psy Discharge Primary Diag: Unspecified Anxiety Disorder Psy Discharge Secondary Diag: Unspecified Depressive disorder; Alcohol use disorder, severe; R/O unspecified psychosis; Diverticulitis Hospital Course Significant Lab Findings: Lab Magnesium 2.0 mg/dL 11/17/16 1135 Potassium 3.3 mmol/L L 11/14/16 0630 Potassium 3.9 mmol/L 11/17/16 1135 Sodium 151 mmol/L H 11/12/16 1748 Sodium 142 mmol/L 11/14/16 0630 Sodium 143 mmol/L 11/17/16 1135 Serum Alcohol 460.0 MG/DL 11/12/16 1748 U Benzodiazepines Scrn 374 NG/ML H 11/12/16 1824 11/12/16 EKG : Sinus tachycardia, rate of 104. MD:149; QRSD:154; QT:408; QTc:537; P:-7; QRS: 3; T:-1. Course Complications: None. Consultations: The patient was seen for admission history and physical by Dr. Miladis Modi. Please see her note for additional information. Allergies: Coded Allergies: lactose (UNKNOWN 11/09/16) sesame oil (UNKNOWN 11/09/16) sesame seed (UNKNOWN 11/09/16) Uncoded Allergies: PESTICIDES (UNKNOWN 04/14/12) Hospital Course/TX Response: The patient was monitored on the unit for safety, mood, psychosis, and alcohol withdrawal. He participated in multimodal treatments on the unit. He did not exhibit any objective or subjective signs of alcohol withdrawal, or score on CIWA. Vital signs were stable throughout hospital course. He was not agreeable to starting other psychotropic medications, other than resuming outpatient prescribed medications of Klonopin and Trazodone. Klonopin was reduced from 2mg po three times a day, to 1mg po four times a day. Trazodone 350mg po was continued at bedtime for insomnia/depression. Patient tolerated all medications well and denied untoward medication effects. During the hospital course, the patient consistently denied active and passive suicidal ideation, plans and intent. He consistently denied active and passive homicidal ideation, plans and intent. There was no evidence of psychosis, paranoia, or delusions. He consistently denied auditory and visual hallucinations. The patient's mood and affect improved. A family meeting was held with the patient, his , Tigist Mitchell ED and this race and sports book writer. The patient's made it clear that the patient could not return to her home. Tigist Mitchell LCSW, and the patient had a phone conference with the patient's mother, who agreed to have the patient return to her home. Her primary concerns surrounding the patient returning to her home was secondary to his alcohol use. The patient was only agreeable to engage in after care plan at [facility], where he was previously treated prior to this inpatient hospitalization. He agreed to partake in [facility] IOP program post discharge. On the date of discharge, 11/18/16, the patient presented A&Ox4, with a full- range affect. Reported his mood as "ok." Speech was normal in rate, tone and volume. Speech was appropriate. He reported anxiety of 1/10 (10 being the worst) and depression of 0/10 (10 being the worst). He denied feeling hopeless, helpless, worthless, and guilty, and reported motivation to abstain from alcohol for his children, (regardless of their marriage status), and his mother, as well as himself. He appeared motivated to attend daily AA meetings for support in his sobriety, and was agreeable to returning to [facility] for IOP treatment for further outpatient management of psychiatric symptoms. He denied active and passive suicidal ideation, plans and intent. He denied homicidal ideation. He stated and also believed he will not harm himself or others. He identified protective factors of "my ," "my sons," and "my mother." Psychoeducation was provided to the patient on the risks of combined use of alcohol with BZD, and the negative health/social consequences. Patient verbalized understanding of education, and verbalized willingness to discuss with [facility] prescriber eventually tapering off of Klonopin over time. Patient was advised not to discontinue Klonopin until otherwise advised by [facility] prescriber and was educated on the risks of abruptly stopping Klonopin and risks of Sz and complicated withdrawal. Patient verbalized understanding of all education and was agreeable to continue taking medications as prescribed during hospitalization until advised otherwise by [facility] prescriber. The patient denied auditory and visual hallucinations. There was no evidence of paranoia or delusions. Thought process was goal-directed and organized. Thought content was appropriate. Cognition was grossly intact. He reported tolerating all medications well and denied untoward medication effects. Patient reported feeling safe and ready for discharge. Discharge HBIPS - Tobacco Use Treatment Offered Post DC Medications Offered: NA-No Tob Use >30 days Post DC Tobacco Treatment Plan: NA-No Tobacco use >30days - EtOH/Drug Use D/O Treatment Offered Post DC Medications Offered: Ref Med EtOH/Drug Use D/O Post DC EtOH/SubAbuse TX Plan: Refused Post DC Tx Pgm Metabolic Screening - Screen if on a Neuroleptic Medication - Metabolic screening should include: - Blood Pressure, BMI, Glucose or Hgb A1c, & a - Lipid profile from within the past 365 days. Metabolic Screening ([X]) Not Applicable, patient not on a neuroleptic. OR () Patient on a neuroleptic(s) . Enter below results for Glucose or Hemoglobin A1C, and lipid panel if obtained during the last 365 days. BMI: 29.900 Blood Pressure: 152/90 Laboratory Results (If applicable): n/a Discharge Instructions General Discharge Information Discharge Medications: Discharge Medications- (Dose, route, freq, indication): Amoxicillin/ Dose: ORAL, 0800,1700 for Qty: 9 Printed Clavulanate Potass 875 Milligram Diverticulitis Refills: 0 (Amox-Clav 875-125 Take 1 tablet by mouth MG Tablet) 875 MG- at 8AM and 1 tablet by 125 MG TABLET mouth at 5PM. Clonazepam Dose: ORAL, 4 TIMES A DAY for Qty: 28 Printed (Klonopin) 1 MG 1 Milligram anxiety Refills: 1 TABLET Take 1 tablet by mouth four times a day. Last Taken:11/18/16 Time:2PM Trazodone HCl Dose: ORAL, 2300 for Qty: 50 Printed (Trazodone HCl) 100 350 Milligram insomnia/depression Refills: 0 MG TABLET Take 3 and 1/2 tablets (350mg) by mouth at bedtime. Last Taken:11/17/16 Time:10P Folic Acid (Folic Dose: ORAL, DAILY @8 AM for Qty: 14 Printed Acid) 1 MG TABLET 1 Milligram VITAMIN SUPPORT Refills: 0 Take 1 tablet by mouth every morning. Last Taken:11/18/16 Time:0900 Thiamine HCl Dose: ORAL, DAILY @8 AM for Qty: 14 Printed (Vitamin B-1) 100 MG 100 Milligram VITAMIN SUPPORT Refills: 0 TABLET Take 1 tablet by mouth every morning. Last Taken:11/18/16 Time:0900 Multivitamin (One Dose: ORAL, DAILY @8 AM for Qty: 14 Printed Daily Multivitamin) 1 Tablet VITAMIN SUPPORT Refills: 0 1 EACH TABLET Take 1 tablet by mouth every morning. Last Taken:11/18/16 Time:0900 All discharge prescriptions were printed, reviewed with patient, and provided to patient on discharge, on 11/18/16. Multiple Neuroleptics: ([X]) Not Applicable OR Document below three failed attempts at monotherapy, or a plan to taper to monotherapy, or augmentation of Clozapine. () Patient's Diet: Lactose free. Patient's Activity: No restrictions. DC Disposition: Patient to return to mother's home. Recommendations: Patient was advised to please take medications. He was advised to not abruptly discontinue Klonopin until meeting with [facility] prescriber and being advised otherwise. He was advised to abstain from alcohol. He was advised of the risks of combining alcohol and Klonopin. He was advised to attend daily AA meetings and to obtain a sponsor for support in sobriety. He was advised to follow-up with after care appointments at [facility]. Patient was scheduled an appointment with his PCP, Dr. Patel, on 11/21/16 at 11AM to follow-up with abnormal EKG. Patient was advised that in the event of an emergency to 911/go to nearest emergency department. Patient verbalized understanding of all instructions. Referred To: [facility] [address], [place] (t)[phone] IOP orientation scheduled on 11/19/16 at 10am. IOP program is 9AM-12PM on Thursday, Thursday, , Thursday. Appointment scheduled with clinician Isauro Perez on 11/26/16 at 4:30PM. Medication appointment scheduled with Dr. Anglea on 11/26/16 at 6PM. [facility] [address], [address] [place] [address] Appointment scheduled on 11/21/[address] Patel. Copies To: [facility]; Dr. Patel
--- NOTE | 2016-11-18 14:21 | NUR ---
Pt was visible in the milieu. His goal was to "focus on aftercare, and stay sober". Pt has been interacting with his peers, and attending minimal groups. He has been cooperative with staff direction, and plans to be discharging this soon. Pt denies when asked if he has thoughts to self harm.
--- NOTE | 2016-11-18 14:32 | NUR ---
will be discharged today to [facility] with follow up at [facility]. mood is stable full range of affect. is very compulsive verging on paronoia. Denied thoughts of self harm when asked. Given education on depression and alcohol abuse.
== END 2016-11-18 15:35 | DRG 880 ==
LOC: ENRESERVDT → ENRESERVTM → ERH 16:41 → ERHI 11-14 11:01 → CP SOUTH 11-14 11:01 → EDBEDREQSVC 11-14 12:10 → CP SOUTH 11-14 13:47
PROVIDERS: Emergency Medicine; Hospitalist; ADMIT Psychiatry & Neurology Psychiatry
DX: F41.9 Anxiety disorder, unspecified (principal); F32.9 Major depressive disorder, single episode, unspecified; F10.20 Alcohol dependence, uncomplicated
CPT/HCPCS: 36415; 80307; 82436; 93005; 93010; G0463; G0480; J3490

== ENCOUNTER 2018-04-24 07:56 | Emergency (ER) | payer OTHER ==
[~2018-04-24] VITALS: Ht 177.8 cm; Wt 88.5 kg
[~2018-04-24 07:56] MED LIST: AMOX-CLAV 875-1 EACH PO; CLONAZEPAM2 M2 PO; FOLIC ACID1 M1 PO; KLONOPIN1 M1 PO; ONE DAILY MULT1 EAC2 PO; TRAZODONE HCL100 M1 PO; TRAZODONE HCL150 M1 PO; TRAZODONE HCL50 M1 PO; VITAMIN B-1100 MG PO
--- NOTE | 2018-04-24 08:43 | ED GI/GU/ABDOMINAL COMPLAINT ---
History of Present Illness General Chief Complaint: Nausea, Vomiting, Diarrhea Stated Complaint: ABD PAIN, VOMITTING SINCE 3AM Source: patient, old records Exam Limitations: no limitations Vital Signs & Intake/Output Vital Signs & Intake/Output Vital Signs Date Time Temp Pulse Resp B/P B/P Pulse O2 O2 Flow FiO2 Mean Ox Delivery Rate 04/24 1208 97.4 82 18 119/70 98 04/24 1108 97.6 04/24 0826 98 04/24 0801 97.6 71 20 159/108 98 Room Air Allergies Coded Allergies: krill oil (ANAPHYLAXIS 04/24/18) lactose (LACTOSE INTOLERANT 04/24/18) omega-3 acid ethyl esters (ANAPHYLAXIS 04/24/18) sesame oil (ANAPHYLAXIS 04/24/18) sesame seed (ANAPHYLAXIS 04/24/18) Uncoded Allergies: PESTICIDES (UNKNOWN 04/14/12) Reconcile Medications Cholecalciferol (Vitamin D3) (Vitamin D) 2,000 UNIT CAPSULE 1 CAP PO QPM SUPPLEMENT (Reported) Clonazepam 2 MG TABLET 1 TAB PO TIDPRN PRN ANXIETY (Reported) Guanfacine HCl (Intuniv) 4 MG TAB.ER.24H 1 TAB PO QPM MENTAL HEALTH (Reported ) Mirtazapine 45 MG TABLET 1 TAB PO QPM MENTAL HEALTH (Reported) Pantoprazole Sodium 40 MG TABLET.DR 1 TAB PO QPM GI (Reported) Quetiapine Fumarate 100 MG TABLET 1-2 TAB PO QPM SLEEP (Reported) Quetiapine Fumarate (Unknown Strength) TABLET (Unknown Dose) UNKNOWN ( Reported) Trazodone HCl 100 MG TABLET 350 MG PO 2300 insomnia/depression Take 3 and 1/2 tablets (350mg) by mouth at bedtime. Triage Note: PT C/O UPPER MID ABDOMINAL PAIN SINCE 0300 WITH N/V. PT STATES HE HAD THE SAME PAIN 2 WEEKS AGO BUT IT WENT AWAY Triage Nurses Notes Reviewed? yes Onset: Morning Duration: hour(s):, constant, continues in ED Timing: recent history Quality/Severity: aching, severe, vomiting Location: generalized abdomen Radiation: no radiation Activities at Onset: eating, sleep Prior Abdominal Problems: none Past Sexual History: Unobtainable at this time Modifying Factors: Worsens With: eating, palpation. Associated Symptoms: abdominal pain, nausea/vomiting HPI: 1 day prior to admission patient reports eating rare hamburgers. 4 hours prior to admission he awoke with generalized abdominal discomfort nonradiating constant moderate to severe associated with nausea vomiting. He denies fever chills diarrhea chest pain cough shortness of breath headache dysuria rash bleeding. Past History Travel History Traveled to [place] past 21 day No Medical History Any Pertinent Medical History? see below for history Neurological: NONE, DENIES EENT: DENIES Cardiovascular: NONE, DENIES Respiratory: NONE Gastrointestinal: diverticulitis Hepatic: Alcohol Renal: NONE Musculoskeletal: DENIES Psychiatric: alcohol dependence, anxiety, bipolar disease, depression, insomnia Endocrine: obesity Blood Disorders: DENIES Cancer(s): DENIES STRICKLER ATTENDANT/Reproductive: DENIES Other Medical Hx: Denied seizures History of MRSA: No History of VRE: No History of CDIFF: No Surgical History Surgical History: none Psychosocial History Who do you live with Friend What is your primary language Malay Tobacco Use: Current Daily Use Daily Tobacco Use Amount/Type: =< 4 Cigarettes daily ETOH Use: denies use Illicit Drug Use: denies illicit drug use Family History Hx Contributory? No Review of Systems Review of Systems Constitutional: Reports: no symptoms. EENTM: Reports: no symptoms. Respiratory: Reports: no symptoms. Cardiovascular: Reports: no symptoms. GI: Reports: see HPI, abdominal pain, nausea, vomiting. Genitourinary: Reports: no symptoms. Musculoskeletal: Reports: no symptoms. Skin: Reports: no symptoms. Neurological/Psychological: Reports: no symptoms. Hematologic/Endocrine: Reports: no symptoms. Immunologic/Allergic: Reports: no symptoms. All Other Systems: Reviewed and Negative Physical Exam Physical Exam General Appearance: well developed/nourished, alert, awake, anxious, severe distress, obese Head: atraumatic, normal appearance Eyes: Bilateral: normal appearance, PERRL, EOMI, normal inspection. Ears, Nose, Throat, Mouth: hearing grossly normal, moist mucous membrane Neck: normal inspection, supple, full range of motion, normal alignment, no midline tenderness Respiratory: normal breath sounds, chest non-tender, no respiratory distress, quiet respiration, lungs clear Cardiovascular: regular rate/rhythm, normal peripheral pulses, norml femoral pulses equa Peripheral Pulses: 4+ carotid (R), 4+ carotid (L) Gastrointestinal: normal bowel sounds, soft, non-tender, no organomegaly Male Genitals: normal genitalia, normal prostate Back: normal inspection, normal range of motion, no vertebral tenderness Extremities: normal range of motion, no ligament instability Neurologic/Psych: no motor/sensory deficits, awake, alert, oriented x 3, normal gait, clinical appeals reviewer II-XII nml as tested Skin: intact, normal color, warm/dry Core Measures ACS in differential dx? No Sepsis Present: No Sepsis Focused Exam Completed? No Progress Differential Diagnosis: biliary colic, bowel obstruction, diverticulitis, gastritis Plan of Care: Orders Procedure Date/time Status LIPASE 04/24 811 Complete COMPREHENSIVE METABOLIC PANEL 04/24 811 Complete CBC WITHOUT DIFFERENTIAL 04/24 811 Complete Laboratory Tests 04/24/18 0815: Anion Gap 15, Estimated GFR > 60, BUN/Creatinine Ratio 13.8, Glucose 125 H, Calcium 9.5, Total Bilirubin 0.3, AST 30, ALT 45, Alkaline Phosphatase 58, Total Protein 7.5, Albumin 4.3, Globulin 3.2, Albumin/Globulin Ratio 1.3, Lipase 123, CBC w Diff NO MAN DIFF REQ, RBC 4.75, MCV 95.5 H, MCH 32.3 H, MCHC 33.8, RDW 15.2 H, MPV 8.0, Gran % 73.1, Lymphocytes % 19.3 L, Monocytes % 6.4, Eosinophils % 0.8, Basophils % 0.4, Absolute Granulocytes 6.3, Absolute Lymphocytes 1.7, Absolute Monocytes 0.6, Absolute Eosinophils 0.1, Absolute Basophils 0 Diagnostic Imaging: Viewed by Me: CT Scan. Discussed w/RAD: CT Scan. Radiology Impression: Noncomplicated sigmoid diverticulitis. Possible cholelithiasis Initial ED EKG: none Departure Departure Time of Disposition: 132 Disposition: HOME OR SELF CARE Condition: Stable Clinical Impression Primary Impression: Diverticulitis Secondary Impressions: H. pylori infection, Nausea & vomiting Referrals: Keisha Perez APRN (PCP/Family) Departure Forms: Customer Survey General Discharge Information Prescriptions: Current Visit Scripts Clarithromycin 1 TAB PO BID #28 TAB Esomeprazole (Nexium) 1 CAP PO BID #28 CAP Amoxicillin 2 TAB PO BID #56 TAB Oxycodone HCl/Acetaminophen (Percocet 5-325 MG Tablet) 1-2 TAB PO Q6PRN PRN severe pain #15 TAB Ondansetron (Zofran Odt) 1 TAB SL TID PRN n/v #10 TAB
[2018-04-24 08:51] LABS: ABSOLUTE BASOPHIL COUNT 0 /CUMM (0.0-0.2); ABSOLUTE EOSINOPHIL COUNT 0.1 /CUMM (0.0-0.7); ABSOLUTE GRANULOCYTE CT 6.3 /CUMM (1.4-6.5); ABSOLUTE LYMPH COUNT 1.7 /CUMM (1.2-3.4); ABSOLUTE MONOCYTE COUNT 0.6 /CUMM (0.10-0.60); BASOPHIL % 0.4 % (0.0-2.0); EOSINOPHIL % 0.8 % (0-5); GRANULOCYTE % 73.1 % (42.2-75.2); HEMATOCRIT 45.4 % (42-52); MEAN CORPUSCULAR HGB 32.3 PG (27.0-31.0); MEAN CORPUSCULAR HGB CONC 33.8 G/DL (33.0-37.0); MEAN CORPUSCULAR VOLUME 95.5 FL (80.0-94.0); PLATELET COUNT 286 /CUMM (130-400); RBC DISTRIBUTION WIDTH 15.2 % (11.5-14.5); RED BLOOD CELL CT 4.75 /CUMM (4.70-6.10); WHITE BLOOD CELL COUNT 8.7 /CUMM (4.8-10.8)
--- NOTE | 2018-04-24 12:14 | CT SCAN REPORT ---
EXAMINATION: CT ABDOMEN AND PELVIS WITH CONTRAST CLINICAL INFORMATION: 42-year-old male patient with nausea and vomiting and periumbilical tenderness. Presumptive diagnosis: Diverticulitis. COMPARISON: CT of the abdomen performed on 09/08/2010. (Extensive left-sided diverticulitis). TECHNIQUE: Multidetector volumetric imaging was performed of the abdomen and pelvis following IV administration of 90 mL of Optiray 320 intravenous contrast. Sagittal and coronal reformatted images were obtained on the technologist's workstation. DLP: 548 mGy-cm FINDINGS: Graduate Teaching Assistant: No obstruction. LUNG BASES: Bilateral dependent atelectasis of lower lobes. LIVER, GALLBLADDER, AND BILIARY TREE: The liver is prominent in size showing fatty infiltration with focal areas of sparing. No focal hepatic lesion or biliary ductal dilatation is present. The gallbladder is well-distended. A solitary punctate hypodense focus in the lumen may represent a fat-containing stone. There are no secondary signs of cholecystitis. Series 2, image 32/106. PANCREAS: Unremarkable. SPLEEN: Unremarkable. ADRENAL GLANDS: Unremarkable. KIDNEYS AND URETERS: The kidneys are normal in size, shape, and attenuation. No hydronephrosis, hydroureter, or calculi seen. No perinephric stranding. BLADDER: PARTIALLY FILLED AND NORMAL. GASTROINTESTINAL TRACT: The stomach and small intestine are normal. The retrocecal appendix is unremarkable. The patient is known to have significant left-sided diverticulosis. Currently there is abnormal circumferential thickening of the proximal sigmoid colon in the region of numerous diverticula. Pericolonic fat stranding indicates the presence of early diverticulitis. Hyperemia is present. No abscess or free air is seen. No free fluid. ABDOMINAL WALL: No significant hernia is appreciated. LYMPH NODES: Normal. VASCULAR: Unremarkable. PELVIC VISCERA: Unremarkable. OSSEOUS STRUCTURES: Unremarkable. IMPRESSION: Noncomplicated sigmoid diverticulitis. Possible cholelithiasis.
[2018-04-24] MEDS ORDERED: MIRTAZAPINE45 M1 PO (13:01)
[2018-04-24] MEDS ORDERED: QUETIAPINE FUM100 M1 PO (13:01)
[2018-04-24] MEDS ORDERED: VITAMIN D2000 UNIT PO (13:02)
[2018-04-24] MEDS ORDERED: QUETIAPINE FUMA25 M1 (13:02)
[2018-04-24] MEDS ORDERED: CLONAZEPAM2 M2 PO (13:03)
[2018-04-24] MEDS ORDERED: INTUNIV4 M1 PO (13:03)
[2018-04-24] MEDS ORDERED: PANTOPRAZOLE SO40 M1 PO (13:05)
[2018-04-24] MEDS ORDERED: AMOXICILLIN500 M3 PO (13:38)
[2018-04-24] MEDS ORDERED: CLARITHROMYCIN500 M1 PO (13:38)
[2018-04-24] MEDS ORDERED: NEXIUM40 M1 PO (13:38)
[2018-04-24] MEDS ORDERED: PERCOCET 5-3251 EACH PO (13:38)
[2018-04-24] MEDS ORDERED: ZOFRAN ODT4 M1 SL (13:40)
[2018-04-24 14:25] VITALS: BP 124/72
== END 2018-04-24 14:26 ==
LOC: ERH 07:56
PROVIDERS: Emergency Medicine
DX: K57.92 Diverticulitis of intestine, part unspecified, without perforation or abscess without bleeding (principal); A04.8 Other specified bacterial intestinal infections; R11.2 Nausea with vomiting, unspecified
CPT/HCPCS: 74177; 96374; 96375; J0131; J1885; J2405; J2765

== ENCOUNTER 2018-05-19 16:43 | Emergency (ER) | payer OTHER ==
[~2018-05-19] VITALS: Ht 177.8 cm; Wt 88.5 kg
[~2018-05-19 16:43] MED LIST changes: +AMOXICILLIN500 M3 PO; +CLARITHROMYCIN500 M1 PO; +INTUNIV4 M1 PO; +MIRTAZAPINE45 M1 PO; +NEXIUM40 M1 PO; +PANTOPRAZOLE SO40 M1 PO; +PERCOCET 5-3251 EACH PO; +QUETIAPINE FUM100 M1 PO; +QUETIAPINE FUMA25 M1; +VITAMIN D2000 UNIT PO; +ZOFRAN ODT4 M1 SL
--- NOTE | 2018-05-19 18:13 | RADIOLOGY REPORT ---
EXAMINATION: XR CHEST CLINICAL INFORMATION: Fall. Rib pain. COMPARISON: Chest radiograph 04/14/2012. TECHNIQUE: 2 views of the chest were obtained. FINDINGS: Lung lungs are low and there is bibasilar subsegmental atelectasis. No overt consolidative disease or effusion. The cardiac silhouette and upper mediastinal contours are normal. No acute osseous finding. IMPRESSION: Low lung volumes and mild bibasilar subsegmental atelectasis. Otherwise unremarkable chest radiograph. No consolidative disease or effusion.
[2018-05-19 18:17] LABS: ABSOLUTE BASOPHIL COUNT 0 /CUMM (0.0-0.2); ABSOLUTE EOSINOPHIL COUNT 0.2 /CUMM (0.0-0.7); ABSOLUTE GRANULOCYTE CT 6.1 /CUMM (1.4-6.5); ABSOLUTE LYMPH COUNT 3.1 /CUMM (1.2-3.4); ABSOLUTE MONOCYTE COUNT 0.4 /CUMM (0.10-0.60); BASOPHIL % 0.3 % (0.0-2.0); EOSINOPHIL % 1.6 % (0-5); GRANULOCYTE % 62.1 % (42.2-75.2); HEMATOCRIT 46.6 % (42-52); MEAN CORPUSCULAR HGB 31.9 PG (27.0-31.0); MEAN CORPUSCULAR HGB CONC 33.8 G/DL (33.0-37.0); MEAN CORPUSCULAR VOLUME 94.3 FL (80.0-94.0); MEAN PLATELET VOLUME 7.3 FL (7.4-10.4); PLATELET COUNT 228 /CUMM (130-400); RBC DISTRIBUTION WIDTH 14.1 % (11.5-14.5); RED BLOOD CELL CT 4.94 /CUMM (4.70-6.10); WHITE BLOOD CELL COUNT 9.8 /CUMM (4.8-10.8)
--- NOTE | 2018-05-19 18:22 | ED MVC/FALL/TRAUMA COMPLAINT ---
History of Present Illness General Chief Complaint: Fall Stated Complaint: FALL AT [facility]/RT RIB PAIN Source: patient Exam Limitations: no limitations Vital Signs & Intake/Output Vital Signs & Intake/Output Vital Signs Date Time Temp Pulse Resp B/P B/P Pulse O2 O2 Flow FiO2 Mean Ox Delivery Rate 05/19 2218 98.2 94 17 137/79 97 Room Air 05/19 1650 97.0 114 18 124/88 95 Room Air ED Intake and Output 05/20 0000 05/19 1200 Intake Total Output Total Balance Patient 195 lb Weight Allergies Coded Allergies: krill oil (ANAPHYLAXIS 04/24/18) lactose (LACTOSE INTOLERANT 04/24/18) omega-3 acid ethyl esters (ANAPHYLAXIS - SALMON OIL 05/19/18) sesame oil (ANAPHYLAXIS 04/24/18) sesame seed (ANAPHYLAXIS 04/24/18) Uncoded Allergies: PESTICIDES (UNKNOWN 04/14/12) Reconcile Medications Cholecalciferol (Vitamin D3) (Vitamin D) 2,000 UNIT CAPSULE 1 CAP PO QPM SUPPLEMENT (Reported) Ciprofloxacin HCl (Cipro) 500 MG TABLET 1 TAB PO BID diverticulitis Clonazepam 2 MG TABLET 1 TAB PO TIDPRN PRN ANXIETY (Reported) Guanfacine HCl (Intuniv) 4 MG TAB.ER.24H 1 TAB PO QPM MENTAL HEALTH (Reported ) Metronidazole (Flagyl) 500 MG TABLET 1 TAB PO TID diverticulitis Mirtazapine 45 MG TABLET 1 TAB PO QPM MENTAL HEALTH (Reported) Pantoprazole Sodium 40 MG TABLET.DR 1 TAB PO QPM GI (Reported) Quetiapine Fumarate 100 MG TABLET 1-2 TAB PO QPM PRN SLEEP (Reported) Trazodone HCl 100 MG TABLET 350 MG PO 2300 insomnia/depression Take 3 and 1/2 tablets (350mg) by mouth at bedtime. Triage Note: PT STATES THAT HE SLIPPED AND FELL ONTO HIS R SIDE PRIOR TO ARRIVAL , COMPLAINS OF R RIB PAIN AND DIFFICULTY TO TAKE A BREATH Triage Nurses Notes Reviewed? yes Onset: Abrupt Duration: hour(s): Timing: single episode today Severity: moderate Injuries/Fall Location: head, neck, chest, back Method of Injury: fall Loss of Consciousness: no loss of consciousness HPI: 42yo male presents to ED complaining of right sided anterior ribcage pain after fall in [facility] prior to arrival. Patient states that he slipped on the wet floor in the bathroom and fell onto his right side. Patient hit his head during the fall however no loss of consciousness. Patient states he got up and had pain right rib cage area, worse with inspiration. Patient drove himself here to the hospital. He also reports generalized headache and neck pain. Patient denies alcohol consumption today however he does smell of alcohol and appear intoxicated. (Lynsey Palafox) Past History Travel History Traveled to [place] past 21 day No Medical History Any Pertinent Medical History? 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 No (Lynsey Palafox) Review of Systems Review of Systems Constitutional: Reports: see HPI. Eyes: Reports: no symptoms. Ears, Nose, Throat, Mouth: Reports: no symptoms. Respiratory: Reports: see HPI. Cardiovascular: Reports: no symptoms. Gastrointestinal/Abdominal: Reports: no symptoms. Genitourinary: Reports: no symptoms. Musculoskeletal: Reports: see HPI. Skin: Reports: no symptoms. Neurological/Psychological: Reports: see HPI. All Other Systems: Reviewed and Negative (Lynsey Palafox) Physical Exam Physical Exam General Appearance: well developed/nourished, alert, awake, intoxicated Head: atraumatic, normal appearance Eyes: Bilateral: normal appearance, PERRL, EOMI. Ears, Nose, Throat, Mouth: hearing grossly normal, moist mucous membrane, Tympanic normal, no hemotympanum Neck: normal inspection, supple, full range of motion, mild cervical spine tenderness without step offs Respiratory: normal breath sounds, no respiratory distress, lungs clear, right sided lateral and anterior chest tenderness with slight swelling anteriorly however no ecchymosis Cardiovascular: regular rate/rhythm Gastrointestinal: normal bowel sounds, soft, pain in right chest with abdominal palpation, no abdominal tenderness Back: normal inspection, normal range of motion Extremities: normal range of motion Neurologic/Psych: awake, alert, oriented x 3, relay mechanic II-XII nml as tested Skin: intact, normal color, warm/dry Core Measures ACS in differential dx? No CVA/TIA Diagnosis No Sepsis Present: No Sepsis Focused Exam Completed? No (Vanessa JARAMILLO,Lynsey Jara) Progress Differential Diagnosis: abd injury, C/T/L spine injury, ext injury, ICH, pelvis injury, pnemothorax, spinal cord injury Plan of Care: Orders Procedure Date/time Status ETHANOL 05/19 1759 Complete COMPREHENSIVE METABOLIC PANEL 05/19 1759 Complete CBC WITHOUT DIFFERENTIAL 05/19 1759 Complete Laboratory Tests 05/19/181806: Anion Gap 13, Estimated GFR > 60, BUN/Creatinine Ratio 10.0, Glucose 101 H, Calcium 8.8, Total Bilirubin 0.5, AST 45, ALT 49, Alkaline Phosphatase 65, Total Protein 7.6, Albumin 4.2, Globulin 3.4, Albumin/Globulin Ratio 1.2, CBC w Diff NO MAN DIFF REQ, RBC 4.94, MCV 94.3 H, MCH 31.9 H, MCHC 33.8, RDW 14.1, MPV 7.3 L, Gran % 62.1, Lymphocytes % 32.1, Monocytes % 3.9, Eosinophils % 1.6, Basophils % 0.3, Absolute Granulocytes 6.1, Absolute Lymphocytes 3.1, Absolute Monocytes 0.4, Absolute Eosinophils 0.2, Absolute Basophils 0, Serum Alcohol 207.0 Patient's alcohol level is elevated at 207. Otherwise his labs are stable. CT scan shows diverticulitis, we will treat with antibiotics accordingly. No evidence of trauma or rib fractures on CT scan. CT scan head and neck is stable. Given patient's elevated alcohol level we will keep him here in the emergency department until he is sober. Patient had a breathalyzer of 0.077, below legal limit. He is requesting to leave at this time. Patient to begin antibiotics for diverticulitis and take Tylenol/ibuprofen for pain. Patient agrees with the plan of care. Discussed findings with Dr. Maki who agrees with this plan. Diagnostic Imaging: Viewed by Me: Radiology Read. Discussed w/RAD: Radiology Read. Radiology Impression: PATIENT: PING PARADA PRESENT AGE: 42 PATIENT ACCOUNT NO: [id number] : 73 LOCATION: [facility], [place] ORDERING PHYSICIAN: Abner Jean-Baptiste DO SERVICE DATE: 05/19/18 EXAM TYPE: RAD - XRY-CHEST XRAY, TWO VIEWS EXAMINATION: XR CHEST CLINICAL INFORMATION: Fall. Rib pain. COMPARISON: Chest radiograph 04/14/2012. TECHNIQUE: 2 views of the chest were obtained. FINDINGS: Lung lungs are low and there is bibasilar subsegmental atelectasis. No overt consolidative disease or effusion. The cardiac silhouette and upper mediastinal contours are normal. No acute osseous finding. IMPRESSION: Low lung volumes and mild bibasilar subsegmental atelectasis. Otherwise unremarkable chest radiograph. No consolidative disease or effusion. DICTATED BY : Allan Corbin MD DATE/TIME DICTATED:05/19/181806 CHILD CARE LEAD TEACHER: SCOOBY DATE/TIME TRANSCRIBED:05/19/181806 CONFIDENTIAL, DO NOT COPY WITHOUT APPROPRIATE AUTHORIZATION. <Electronically signed in Other Vendor System> SIGNED BY: Allan Corbin MD 05/19/181812, PATIENT: PING PARADA PRESENT AGE: 42 PATIENT ACCOUNT NO: [id number] : 71 LOCATION: [facility], [place] ORDERING PHYSICIAN: Lynsey JARAMILLO SERVICE DATE: 05/19/18 EXAM TYPE: CAT - CT CERV SPINE WO IV CONTRAST; CT HEAD WO IV CONTRAST EXAMINATION: CT HEAD AND CERVICAL SPINE CLINICAL INFORMATION : Fall with head strike. Evaluate for intracranial hemorrhage. COMPARISON: Soft tissue neck CT scan 07/20/2010. TECHNIQUE: Precipitator images were obtained. CT acquisition of the head and cervical spine was performed without intravenous administration of contrast. Data was reformatted into multiplanar images at the acquisition workstation. DLP: 1036.03 mGy-cm. FINDINGS: Head: There is no acute intracranial hemorrhage or abnormal intra-axial collection. Lateral and third ventricles are normal. No hydrocephalus. Goodman-white matter differentiation is grossly preserved and there is no evidence of acute territorial infarct. The calvarium and skull base are intact. Mastoid air cells and middle ear cavities are well aerated. Visualized paranasal sinuses are well aerated. Cervical spine: There is nonspecific straightening of the cervical lordosis. Alignment is otherwise normal. Vertebral body heights are preserved. No acute fracture. No abnormal prevertebral soft tissue swelling. There is asymmetric hypertrophic spurring of the left C5-C6 facet joint. There is at least mild left neuroforaminal encroachment at this level. Otherwise no bony canal or neuroforaminal compromise. There is a small nodular lesion either involving the right vocal cord or the right lateral aspect of the subglottic airway that presumably represents a polyp. IMPRESSION: Head: No acute intracranial hemorrhage. Cervical spine: No acute cervical spinal fracture. Of note there is a suspected mucosal polyp either involving the right vocal cord or the right lateral aspect of the proximal subglottic airway. Nasolaryngoscopy is therefore recommended for better anatomic characterization of this finding. DICTATED BY: Allan Corbin MD DATE/TIME DICTATED:05/19/181933 CHILD CARE LEAD TEACHER: SCOOBY DATE/TIME TRANSCRIBED:05/19/181933 CONFIDENTIAL, DO NOT COPY WITHOUT APPROPRIATE AUTHORIZATION. <Electronically signed in Other Vendor System> SIGNED BY: Allan Corbin MD 05/19/181945, PATIENT: PING PARADA PRESENT AGE: 42 PATIENT ACCOUNT NO: [id number] : 71 LOCATION: [facility] [place] ORDERING PHYSICIAN: Lynsey JARAMILLO SERVICE DATE: 05/19/18 EXAM TYPE: CAT - CT ABD & PELVIS W IV CONTRAST; CT CHEST W IV CONTRAST EXAMINATION: CT CHEST, ABDOMEN AND PELVIS WITH CONTRAST CLINICAL INFORMATION: Right-sided rib pain. Fall. COMPARISON: CT abdomen and pelvis 04/24/2018. Chest x-ray 05/19/2018. TECHNIQUE: Multidetector volumetric CT imaging of the chest, abdomen and pelvis was obtained after the administration of 95 mL of intravenous Optiray 320 without immediate adverse reactions. Coronal and sagittal reformatted images are performed at the CT scanner. DLP: 1166.67 mGy-cm. FINDINGS: CT CHEST: LUNGS: The lungs are clear with no evidence of inflammation or nodules. MEDIASTINUM: The mediastinum is normal. PLEURA: There is no pleural effusion. No pleural mass or thickening. AXILLA: No lymphadenopathy. CT ABDOMEN AND PELVIS: LIVER, GALLBLADDER, AND BILIARY TREE: Diffuse low attenuation of liver parenchyma due to fatty change. There is hepatomegaly. The right lobe of liver measures 24.3 cm superior- inferior. There are multiple small radiolucent gallstones within the gallbladder. There is no bile duct dilatation but the extrahepatic CBD measures 5 mm. PANCREAS: No acute change of the pancreas. No mass. No pancreatic duct dilatation. SPLEEN: Spleen normal in size and contour. No focal lesion. ADRENAL GLANDS: Adrenal glands are normal in size. No focal mass. KIDNEYS AND URETERS: The kidneys are normal in size, shape, and attenuation. No hydronephrosis, hydroureter, or calculi seen. No perinephric stranding. BLADDER: Unremarkable. GASTROINTESTINAL TRACT: There is diverticulitis of the distal descending and proximal sigmoid colon. There are numerous diverticula of the colon but there are most numerous at the distal descending colon and proximal sigmoid. There is edema of the wall. There is pericolonic edema and a small amount of fluid. There is no abscess or perforation. There is a large collection of stool filling the lumen at the level of the diverticulitis. Scattered stool is seen in the remainder of the colon. The appendix is normal. The small bowel loops are normal. MESENTERY: No free air or free fluid. ABDOMINAL WALL: No significant hernia is appreciated. LYMPH NODES: Normal. VASCULAR: Unremarkable. PELVIC VISCERA: Unremarkable. OSSEOUS STRUCTURES: No fracture. No acute osseous abnormality. Mild degenerative spondylosis with multilevel vertebral endplate spurring of the lower thoracic upper lumbar vertebrae. IMPRESSION: 1. No acute osseous abnormality. No acute change of the chest. 2. Diffuse fatty change of liver with mild hepatomegaly. 3. Diverticulitis of the distal descending proximal sigmoid colon. No perforation or abscess. No obstruction. DICTATED BY: Chuy Shelley MD DATE/TIME DICTATED:05/19/181948 CHILD CARE LEAD TEACHER:SCOOBY DATE/TIME TRANSCRIBED:05/19/181948 CONFIDENTIAL, DO NOT COPY WITHOUT APPROPRIATE AUTHORIZATION. <Electronically signed in Other Vendor System> SIGNED BY: Chuy Shelley MD 05/19/182019 (Lynsey Palafox) Departure Departure Disposition: HOME OR SELF CARE Condition: Stable Clinical Impression Primary Impression: Fall Secondary Impressions: Alcohol intoxication, Diverticulitis, Rib pain Referrals: Keisha Perez APRN (PCP/Family) Additional Instructions: Take full course of antibiotics. Follow-up to primary care doctor. Return if feels worsening symptoms or concerns. Please note that there might be incidental findings in your evaluation that are unrelated to the current emergency department visit. Please notify your primary care doctor about this emergency department visit in order to obtain and review all of the testing performed so that these incidental findings can be monitored as needed. If you had an x-ray performed, please understand that some fractures may not be seen on the initial set of x-rays. If your symptoms persist you might need a repeat set of x-rays to check for such a fracture. If you had a laceration evaluated, please understand that foreign bodies such as glass or wood may not be visible to the naked eye or on plain x-rays. If the wound becomes red, swollen, increasingly more painful or if there is any drainage from the wound, please have it reevaluated by a physician for the possibility of a retained foreign body. If you're unable to follow up as outlined in the discharge instructions please return to the emergency department. Thank you for choosing the [facility] Emergency Department for your care. It was a pleasure to serve you today. Departure Forms: Customer Survey General Discharge Information Prescriptions: Current Visit Scripts Ciprofloxacin HCl (Cipro) 1 TAB PO BID #20 TAB Metronidazole (Flagyl) 1 TAB PO TID #30 TAB (Vanessa JARAMILLO,Lynsey Jara) PA/US ADMINISTRATIVE LAW JUDGE Co-Sign Statement Statement: ED Attending supervision documentation- I saw and evaluated the patient. I have also reviewed all the pertinent lab results and diagnostic results. I agree with the findings and the plan of care as documented in the PA's/US ADMINISTRATIVE LAW JUDGE's documentation. x I have reviewed the ED Record and agree with the PA's/US ADMINISTRATIVE LAW JUDGE's documentation. [] Additions or exceptions (if any) to the PAs/US ADMINISTRATIVE LAW JUDGE's note and plan are summarized below: [] (Shanthi SULLIVAN,Zan)
--- NOTE | 2018-05-19 19:46 | CT SCAN REPORT ---
EXAMINATION: CT HEAD AND CERVICAL SPINE CLINICAL INFORMATION: Fall with head strike. Evaluate for intracranial hemorrhage. COMPARISON: Soft tissue neck CT scan 07/20/2010. TECHNIQUE: Packager images were obtained. CT acquisition of the head and cervical spine was performed without intravenous administration of contrast. Data was reformatted into multiplanar images at the acquisition workstation. DLP: 1036.03 mGy-cm. FINDINGS: Head: There is no acute intracranial hemorrhage or abnormal intra-axial collection. Lateral and third ventricles are normal. No hydrocephalus. Goodman-white matter differentiation is grossly preserved and there is no evidence of acute territorial infarct. The calvarium and skull base are intact. Mastoid air cells and middle ear cavities are well aerated. Visualized paranasal sinuses are well aerated. Cervical spine: There is nonspecific straightening of the cervical lordosis. Alignment is otherwise normal. Vertebral body heights are preserved. No acute fracture. No abnormal prevertebral soft tissue swelling. There is asymmetric hypertrophic spurring of the left C5-C6 facet joint. There is at least mild left neuroforaminal encroachment at this level. Otherwise no bony canal or neuroforaminal compromise. There is a small nodular lesion either involving the right vocal cord or the right lateral aspect of the subglottic airway that presumably represents a polyp. IMPRESSION: Head: No acute intracranial hemorrhage. Cervical spine: No acute cervical spinal fracture. Of note there is a suspected mucosal polyp either involving the right vocal cord or the right lateral aspect of the proximal subglottic airway. Nasolaryngoscopy is therefore recommended for better anatomic characterization of this finding.
--- NOTE | 2018-05-19 20:20 | CT SCAN REPORT ---
EXAMINATION: CT CHEST, ABDOMEN AND PELVIS WITH CONTRAST CLINICAL INFORMATION: Right-sided rib pain. Fall. COMPARISON: CT abdomen and pelvis 04/24/2018. Chest x-ray 05/19/2018. TECHNIQUE: Multidetector volumetric CT imaging of the chest, abdomen and pelvis was obtained after the administration of 95 mL of intravenous Optiray 320 without immediate adverse reactions. Coronal and sagittal reformatted images are performed at the CT scanner. DLP: 1166.67 mGy-cm. FINDINGS: CT CHEST: LUNGS: The lungs are clear with no evidence of inflammation or nodules. MEDIASTINUM: The mediastinum is normal. PLEURA: There is no pleural effusion. No pleural mass or thickening. AXILLA: No lymphadenopathy. CT ABDOMEN AND PELVIS: LIVER, GALLBLADDER, AND BILIARY TREE: Diffuse low attenuation of liver parenchyma due to fatty change. There is hepatomegaly. The right lobe of liver measures 24.3 cm superior-inferior. There are multiple small radiolucent gallstones within the gallbladder. There is no bile duct dilatation but the extrahepatic CBD measures 5 mm. PANCREAS: No acute change of the pancreas. No mass. No pancreatic duct dilatation. SPLEEN: Spleen normal in size and contour. No focal lesion. ADRENAL GLANDS: Adrenal glands are normal in size. No focal mass. KIDNEYS AND URETERS: The kidneys are normal in size, shape, and attenuation. No hydronephrosis, hydroureter, or calculi seen. No perinephric stranding. BLADDER: Unremarkable. GASTROINTESTINAL TRACT: There is diverticulitis of the distal descending and proximal sigmoid colon. There are numerous diverticula of the colon but there are most numerous at the distal descending colon and proximal sigmoid. There is edema of the wall. There is pericolonic edema and a small amount of fluid. There is no abscess or perforation. There is a large collection of stool filling the lumen at the level of the diverticulitis. Scattered stool is seen in the remainder of the colon. The appendix is normal. The small bowel loops are normal. MESENTERY: No free air or free fluid. ABDOMINAL WALL: No significant hernia is appreciated. LYMPH NODES: Normal. VASCULAR: Unremarkable. PELVIC VISCERA: Unremarkable. OSSEOUS STRUCTURES: No fracture. No acute osseous abnormality. Mild degenerative spondylosis with multilevel vertebral endplate spurring of the lower thoracic upper lumbar vertebrae. IMPRESSION: 1. No acute osseous abnormality. No acute change of the chest. 2. Diffuse fatty change of liver with mild hepatomegaly. 3. Diverticulitis of the distal descending proximal sigmoid colon. No perforation or abscess. No obstruction.
[2018-05-19] MEDS ORDERED: FLAGYL500 MG PO (20:55)
[2018-05-19] MEDS ORDERED: CIPRO500 M1 PO (20:55)
[2018-05-19 22:18] VITALS: BP 137/79
== END 2018-05-19 22:44 ==
LOC: ERH 16:43
PROVIDERS: Physician Assistant
DX: S09.90XA Unspecified injury of head, initial encounter (principal); M54.2 Cervicalgia; R51 Headache; R07.81 Pleurodynia; F10.129 Alcohol abuse with intoxication, unspecified; K57.92 Diverticulitis of intestine, part unspecified, without perforation or abscess without bleeding; W01.0XXA Fall on same level from slipping, tripping and stumbling without subsequent striking against object, initial encounter
CPT/HCPCS: 71046; 74177; 96374; G0480; J0131